=== PATIENT | female | born 1950 | race Caucasian/White ===

== ENCOUNTER → 2018-04-14 10:41 | Outpatient (CLI) | payer MEDICARE, SELFPAY ==
[2018-04-14 12:21] LABS: Anion Gap 6 (5-15); BUN 19 mg/dL (7-18); BUN/Creat Ratio 21.4 RATIO (10-20); Calcium,Total 9.4 mg/dL (8.5-10.1); Chloride 106 mmol/L (98-107); Cholesterol 191 mg/dL (200); Creatinine, Serum 0.89 mg/dL (0.55-1.02); EST Glomerular Filtration Rate 68 mL/min (>60); Est Glom Filt Rate - Afr Amer 82 mL/min (>60); Glucose 91 mg/dL (74-106); High Density Lipoprotein 62 mg/dL; Potassium 4.2 mmol/L (3.5-5.1); Sodium Level 140 mmol/L (136-145); Thyroid Stim Hormone (TSH) 1.32 uIU/mL (0.358-3.74); Triglycerides 146 mg/dL; Very Low Density Lipoprotein 29 mg/dL (5-40)
== END ==
PROVIDERS: Family Provider Family Medicine; PCP Family Medicine; Visit Provider Nurse Practitioner Adult Health
DX: Z13.220 Encounter for screening for lipoid disorders (principal); Z13.1 Encounter for screening for diabetes mellitus; Z13.29 Encounter for screening for other suspected endocrine disorder
CPT/HCPCS: 36415; 80048; 80061; 84443

== ENCOUNTER → 2018-09-22 11:06 | Outpatient (CLI) | payer MEDICARE, SELFPAY ==
[2018-09-22 12:20] LABS: Anion Gap 6 (5-15); BUN 21 mg/dL (7-18); BUN/Creat Ratio 18.8 RATIO (10-20); Calcium,Total 8.8 mg/dL (8.5-10.1); Chloride 107 mmol/L (98-107); Creatinine, Serum 1.12 mg/dL (0.55-1.02); EST Glomerular Filtration Rate 52 mL/min (>60); Est Glom Filt Rate - Afr Amer 63 mL/min (>60); Glucose 85 mg/dL (74-106); Potassium 4.2 mmol/L (3.5-5.1); Sodium Level 139 mmol/L (136-145)
== END ==
PROVIDERS: Family Provider Family Medicine; PCP Family Medicine; Referring Provider Family Medicine; Visit Provider Family Medicine
DX: R31.9 Hematuria, unspecified (principal)
CPT/HCPCS: 36415; 80048; 87086; 87088

== ENCOUNTER → 2018-09-25 16:09 | Outpatient (CLI) | payer MEDICARE, SELFPAY ==
--- NOTE | 2018-09-25 16:11 | US_ITS ---
HISTORY: HEMATURIA TECHNIQUE: Grey scale and color doppler sagittal and transverse images were obtained of the kidneys. COMPARISON: None FINDINGS: # of images incl. paperwork: [id number] RIGHT KIDNEY: 9.6 x 3.9 x 3.3 cm.. No hydronephrosis or shadowing stone. Markedly lobular contour of the right renal cortex. LEFT KIDNEY: 11.2 x 5.2 x 5.0 cm. No hydronephrosis or renal stone. No concerning left-sided lesions. 2.1 cm diameter cyst in the lower pole extending toward the renal pelvis.. URINARY BLADDER: Bilateral ureteral jets identified. No stones or filling defects in the urinary bladder. Prevoid volume 145 cc. Postvoid volume 1 cc. No wall thickening. US/Kidney and Bladder IMPRESSION: Markedly lobular contour of the right renal cortex. While this may represent anatomic variant or scarring with areas of sparing, renal protocol CT or MRI recommended to exclude mass which remains possible. Otherwise unremarkable study. at 0332 Reported and signed by: Wilfredo Small MD Electronically Signed: Wilfredo Small, at 3:31 EST Tel , Service support ,
--- OUTSIDE RECORDS SUMMARY | 2018-11-30 11:38 | XMS RPT_ITS ---
:1950 Author Organization OHIP Care Team Providers Name Role Phone JAYANT CAN Referring Unavailable Jayant Can Attending Unavailable Jayant Can Primary Care Unavailable Jayant Can Referring Unavailable Jayant Cna Attending Unavailable Jayant Can Referring Unavailable Juan José, Jayant Primary Care Unavailable Ynes Patel Attending Unavailable Ynes Patel Referring Unavailable Jayant Can Primary Care Unavailable PROBLEMS PROBLEMS DATE TYPE CONDITION / CODE ATTENDING STATUS SOURCE 09/22/2018 Unknown R31.9 - Jayant Can Active [place] Hematuria, Community unspecified / Hospital R31.9(ICD-10) Repository 02/27/2018 Active Encounter for NA Active [facility] screening Main [place] mammogram for Repository malignant neoplasm of breast / Z12.31(ICD-10) PROCEDURES PROCEDURES No Procedure Records FoundRESULTS RESULTS KIDNEY AND BLADDER Observed: 09/25/2018 Status: F Source: MALATHI 4:11 PM [facility] REPOSITORY [facility] Imaging Services [address] [place] [address] Kidney and Bladder MR#: [id number] Acct: [id number] Name: XIMENA OCHOA Rep #: [id number] : 1950 F 68 From: Wilfredo Small MD PCP: Jayant Can MD Status: REG CLI Study: Kidney and Bladder Date of Exam: 09/25/18 Exam# [id number] Ordering Dr: Jayant Can MD HISTORY: HEMATURIA TECHNIQUE: Grey scale and color doppler sagittal and transverse images were obtained of the kidneys. COMPARISON: None FINDINGS: # of images incl. paperwork: [id number] RIGHT KIDNEY: 9.6 x 3.9 x 3.3 cm.. No hydronephrosis or shadowing stone. Markedly lobular contour of the right renal cortex. LEFT KIDNEY: 11.2 x 5.2 x 5.0 cm. No hydronephrosis or renal stone. No concerning left-sided lesions. 2.1 cm diameter cyst in the lower pole extending toward the renal pelvis.. URINARY BLADDER: Bilateral ureteral jets identified. No stones or filling defects in the urinary bladder. Prevoid volume 145 cc. Postvoid volume 1 cc. No wall thickening. US/Kidney and Bladder IMPRESSION: Markedly lobular contour of the right renal cortex. While this may represent anatomic variant or scarring with areas of sparing, renal protocol CT or MRI recommended to exclude mass which remains possible. Otherwise unremarkable study. at 0332 Reported and signed by: Wilfredo Small MD Electronically Signed: Wilfredo Small, at 3:31 EST Tel , Service support , CC: Jayant Can MD Grinder Lap: Signed BASIC METABOLIC Collected: 09/22/2018 Status: F Source: MALATHI PROFILE (BMP) 11:07 AM [facility] TYPE CODE TESTS RESULT OUT OF RANGE REFERENCE UNITS LAB L501.0100 74-106 mg/dL Normal GLU 85 Result Comment: Please note revised GLUCOSE reference range effective 2017. LAB L501.1000 7-18 mg/dL High BUN 21 LAB L501.1100 0.55-1.02 mg/dL High CREAT,SERUM 1.12 Result Comment: The validity of the calculated GFR AND GFRAA in patients over 70 years has not been determined. Clinical correlation is essential. LAB L501.1110 >60 mL/min Low EST GFR 52 Result Comment: Non- GFR Calc LAB L501.1115 >60 mL/min Normal EST GFR - AA 63 Result Comment: GFR Calc LAB L501.1300 10-20 RATIO Normal BUN/CRE 18.8 LAB L501.2200 8.5-10.1 mg/dL CA Normal 8.8 LAB L501.5300 136-145 mmol/L NA Normal 139 LAB L501.5600 3.5-5.1 mmol/L K Normal 4.2 LAB L501.5900 98-107 mmol/L CL Normal 107 LAB L501.6100 21.0-32.0 mmol/L Normal CO2 26.0 LAB L501.6200 5-15 Normal GAP 6 Performed By: #### L500.2500 #### [facility] [address] [facility] [place], [address] Observed: 09/22/2018 Status: F Source: MALATHI CULTURE, URINE 9:30 AM [facility] Urine Culture ORGANISM 1: Mixed Gram Pos AND Gram Neg Org Piru Count 25,000-50,000 MIX CULTURE Mixed contaminants. Submit a new specimen if indicated. Performed By: #### M100.0650 #### [facility] [address] [facility] [place], [address] BASIC METABOLIC Collected: 04/14/2018 Status: F Source: MALATHI PROFILE (BMP) 10:51 AM [facility] Order Comment: Order Date: 03/25/18 Order Info: 0667-1 - BMP Order Info: 33783-7 - LIPID Order Info: 3016-3 - TSH TYPE CODE TESTS RESULT OUT OF RANGE REFERENCE UNITS LAB L501.0100 74-106 mg/dL Normal GLU 91 Result Comment: Please note revised GLUCOSE reference range effective 2017. LAB L501.1000 7-18 mg/dL High BUN 19 LAB L501.1100 0.55-1.02 mg/dL Normal CREAT,SERUM 0.89 Result Comment: The validity of the calculated GFR AND GFRAA in patients over 70 years has not been determined. Clinical correlation is essential. LAB L501.1110 >60 mL/min Normal EST GFR 68 Result Comment: Non- GFR Calc LAB L501.1115 >60 mL/min Normal EST GFR - AA 82 Result Comment: GFR Calc LAB L501.1300 10-20 RATIO High BUN/CRE 21.4 LAB L501.2200 8.5-10.1 mg/dL CA Normal 9.4 LAB L501.5300 136-145 mmol/L NA Normal 140 LAB L501.5600 3.5-5.1 mmol/L K Normal 4.2 LAB L501.5900 98-107 mmol/L CL Normal 106 LAB L501.6100 21.0-32.0 mmol/L Normal CO2 28.0 LAB L501.6200 5-15 Normal GAP 6 Performed By: #### L500.2500, L500.4100, L501.9520 #### [facility] [address] [place], [place], [address] LIPID PROFILE Collected: 04/14/2018 Status: F Source: MALATHI 10:51 AM [facility] Order Comment: Order Date: 03/25/18 Order Info: 0667-1 - BMP Order Info: 03091-5 - LIPID Order Info: 3016-3 - TSH TYPE CODE TESTS RESULT OUT OF RANGE REFERENCE UNITS LAB L501.4900 200 mg/dL Normal CHOL 191 Result Comment: <200 mg/dL Desirable 200-240 mg/dL Borderline >240 mg/dL High Risk LAB L501.5000 mg/dL Normal TRIG 146 Result Comment: The drugs N-Acetylcysteine and Metamizole may falsely depress this assay. Serum Triglycerides Reference Interval Normal <150 mg/dL Borderline high 150 - 199 mg/dL High 200 - 499 mg/dL Very High > or = 500 mg/dL LAB L501.6400 mg/dL Normal HDL 62 Result Comment: The drugs N-Acetylcysteine and Metamizole may falsely depress this assay. Reference Range HDL <40 mg/dL Low HDL Cholesterol HDL >or= 60 mg/dL High HDL Cholesterol LAB L501.6500 0-130 mg/dL Normal LDL 100 LAB L501.6600 5-40 mg/dL Normal VLDL 29 Performed By: #### L500.2500, L500.4100, L501.9520 #### [facility] [address] [place], [address] THYROID STIM HORMONE Collected: 04/14/2018 Status: F Source: MALATHI (TSH) 10:51 AM [facility] Order Comment: Order Date: 03/25/18 Order Info: 0667-1 - BMP Order Info: 24409-8 - LIPID Order Info: 3016-3 - TSH TYPE CODE TESTS RESULT OUT OF RANGE REFERENCE UNITS LAB L501.9520 0.358-3.74 uIU/mL Normal TSH 1.32 Performed By: #### L500.2500, L500.4100, L501.9520 #### [facility] [address] [place], [address] CNCO Observed: 02/27/2018 Status: COMPLETED Source: [place] 1:03 PM [facility] REPOSITORY HNO ID: [id number] Author: Mammography Coordinator Service: (none) Author Type: Physician Type: Letter Filed: 03/03/2018 11:31 PM Note Text: February 27, 2018 PID: [id number] Ximena AngelDeandre Ochoa [address] [place] [address] Dear Ms. Ochoa, We are pleased to inform you that the results of your recent breast imaging exam on 02/27/2018 are normal. Early detection of cancer is very important. We also understand recommendations regarding breast cancer screening are controversial. Please discuss with your primary care provider which strategy is best for you and whether a mammogram is right for you. Your imaging studies and report will be kept on file at [facility] as part of your permanent medical record and are available for your continuing care. Thank you for allowing us to help in meeting your health care needs. Sincerely, Dr. Starr Interpreting Radiologist [facility] (Normal over 40) [facility] SCREENING Observed: 02/27/2018 Status: F Source: [place] 10:40 AM [facility] [place] REPOSITORY * * *Final Report* * * DATE OF EXAM: Feb 27 2018 10:40AM [facility] 0581 - [facility] SCREENING / PROCEDURE REASON: screening * * * * Physician Interpretation * * * * RESULT: #[id number] - [facility] SCREENING BILATERAL DIGITAL SCREENING MAMMOGRAM WITH CAD: 02/27/2018 HISTORY: Screening /patient reports no breast symptoms /priors available for comparison. RESULT: TECHNIQUE: The study was acquired using full field digital technology and interpreted from soft copy. Current study was also evaluated with a Computer Aided Detection (CAD). Comparison is made to exams dated: 01/23/2017 mammogram, 01/18/2016 mammogram - [facility], and 01/05/2015 mammogram - [facility]. There are scattered fibroglandular elements in both breasts. No significant masses, calcifications, or other findings are seen in either breast. There has been no significant interval change. IMPRESSION: NEGATIVE There is no mammographic evidence of malignancy.A 1 year screening mammogram is recommended. Rafael louise/leo:02/27/2018 13:03:06 Farm Supervisor: Brielle GRIDER)(Dion), [facility] letter sent: Normal over 40 Mammogram BI-RADS: 1 Negative Grinder Lap: Leo Transcribe Date/Time: Feb 27 2018 10:27A Dictated by: RAFAEL STARR MD This examination was interpreted and the report reviewed and electronically signed by: RAFAEL STARR MD on Feb 27 2018 1:03PM EST [id number] Observed: 02/27/2018 Status: COMPLETED Source: [place] 10:27 AM [facility] [place] REPOSITORY HNO ID: [id number] Author: Yaquelin Khoury Service: (none) Author Type: (none) Type: Progress Notes Filed: 02/27/2018 10:47 AM Note Text: Radiology Service Progress Note PATIENT NAME: Ximena Ochoa DATE OF SERVICE: February 27, 2018 TIME: 10:27 AM PATIENT IDENTITY VERIFICATION COMPLETED USING TWO (2) METHODS: Patient confirmed name verbally and Date of . PATIENT GENDER DATA: Female. status: : No status: NO. PATIENT RELEVANT IMPLANT DATA REVIEWED: Not Applicable RADIOLOGY DEPARTMENT: [facility] shan scr mammogram PERIPHERAL IV DATA: Not applicable SIGNED BY: Yaquelin Khoury February 27, 2018 10:27 AM ALLERGIES ALLERGIES DATE TYPE / CODE NAME / CODE REACTION SEVERITY SOURCE Drug NO KNOWN [facility] Class/44373 ALLERGIES [place] 1003(SNOMED Repository CT) ENCOUNTERS ENCOUNTERS ADMIT/DISCHARGE ACCOUNT ADMITTING ENCOUNTER LOCATION SOURCE NUMBER CLASS 09/25/2018 [id number] [facility] ing:US Repository 09/22/2018 [id number] [facility] ing:PLAB Repository 04/14/2018 [id number] [facility] ing:MTLAB Repository 02/27/2018/02/28/20 [id number] Ambulatory [address] Repository PAYERS PAYERS ENCOUNTER GUARANTOR PAYER SUBSCRIBER SOURCE 09/25/2018 XIMENA R Primary XIMENA R Malathi [id number] SR Insurance:AETNA SHRIVERDOB: [address] Number: [id number] [address]Nme: [id number] Repository Date:[id number] BOX (HP) [id number] [place] [phone]: 09/25/2018 Secondary NOT GIVENUNK Malathi Insurance:SELF PAY [facility] Number: Effective Repository Date:2018-09-23 09/22/2018 XIMENA R Primary XIMENA R Malathi [id number] SR Insurance:AETNA SHRIVERDOB: [address] Number: [id number] [address]Svr: [id number] Repository Date:[id number] BOX (HP) [id number] [place] [phone]: 09/22/2018 Secondary NOT GIVENUNK [place] Insurance:SELF PAY [facility] Number: Effective Repository Date:2018-09-22 04/14/2018 XIMENA R Primary XIMENA R Malathi [id number] SR Insurance:AETNA SHRIVERDOB: [address] Number: [id number] [address]Fpc: [id number] Repository Date:[id number] BOX (HP) [id number] [place] [phone]: 04/14/2018 Secondary NOT GIVENUNK [place] Insurance:SELF PAY [facility] Number: Effective Repository Date:2018-04-14
== END ==
PROVIDERS: Family Provider Family Medicine; PCP Family Medicine; Referring Provider Family Medicine; Visit Provider Family Medicine
DX: R31.9 Hematuria, unspecified (principal)
CPT/HCPCS: 76770

== ENCOUNTER → 2018-10-06 09:36 | Outpatient (CLI) | payer MEDICARE, SELFPAY ==
--- NOTE | 2018-10-06 09:49 | MRI_ITS ---
STUDY: MRI ABDOMEN WITHOUT CONTRAST REASON FOR EXAM: Female, 68 years old. Abnormal ultrasound of the kidney. Renal ultrasound was performed for hematuria. Hematuria is no longer present. The renal ultrasound demonstrate a lobulated contour of the right renal cortex. TECHNIQUE: Multisequence multiplanar MRI of the abdomen was performed without IV contrast. COMPARISON: 7 kidneys 09/25/2018 FINDINGS: On the steam meter reader view one can appreciate degenerative disc disease at all visible levels of the thoracic and lumbar spine, associated with scoliosis. There is evidence of foraminal narrowing at multiple levels of the lumbar spine, incompletely characterized. Body wall soft tissues unremarkable. Inferior chest: Unremarkable. Hepatobiliary: Several small layering gallstones, nondilated noninflamed gallbladder, normal biliary tree and common bile duct. Tiny cyst at the tip of the liver with grossly simple cystic features, measuring 7.5 mm. Grossly simple cystlike focus in the dome of the right liver measuring 1.2 cm. Along the posterior margin of the liver, subcapsular, there is an oval focus measuring approximately 8.6 mm in diameter which exhibits T2 and T1 hypointensity, sharply circumscribed margins. Incompletely characterized. Pancreas: Normal. Spleen: Normal. Adrenal glands: Normal. Retroperitoneum: No mass or lymphadenopathy. Vasculature: Normal. Stomach and bowel: Evaluated portions exhibit no acute process. Kidneys: Each kidney exhibits mild macrolobulation of its cortical margin somewhat more pronounced in the right kidney. There are no defined underlying renal cortical medullary lesions. Simple appearing parapelvic cyst of the left kidney conforming to that seen on ultrasound, measuring approximately 2.4 x 1.4 cm, without underlying hydronephrosis. MRI/Abdomen without Contrast IMPRESSION: lobulations of the kidneys, normal variant, without MRI evidence of underlying suspicious lesion. Left renal parapelvic cyst without hydronephrosis. Cholelithiasis without cholecystitis or biliary ductal ectasia. There are 2 simple appearing cystlike foci of the liver. There is a 3rd lesion of the posterior margin of the right liver, at the junction of segment 6 and segment 7, subserosal position. Incompletely characterized. This focus does not conform to a simple cyst. It exhibits signal hypointensity on all sequences. Potentially partially calcified. An ultrasound of the liver should help to determine whether this represents a soft tissue lesion or a chronic calcification Electronically Signed: Alex Miles MD at 10:51 EST Tel , Service support ,
== END ==
PROVIDERS: Family Provider Family Medicine; PCP Family Medicine; Referring Provider Family Medicine; Visit Provider Family Medicine
DX: R93.421 Abnormal radiologic findings on diagnostic imaging of right kidney (principal)
CPT/HCPCS: 74181

== ENCOUNTER → 2018-10-08 09:33 | Outpatient (CLI) | payer MEDICARE, SELFPAY ==
--- NOTE | 2018-10-08 09:49 | US_ITS ---
STUDY: ABDOMINAL ULTRASOUND - RIGHT UPPER QUADRANT REASON FOR VISIT: Female, 68 years old. Gallstones, hepatic lesion TECHNIQUE: Ultrasound evaluation of the right upper quadrant was performed with real-time and static noel-scale imaging. TECHNICAL QUALITY: Adequate. COMPARISON: None. FINDINGS: Liver: The liver measures 14.6 cm. There is normal echogenicity of the liver. The bile ducts are within normal limits. There is hepatic color flow. The direction of portal flow is hepatopetal. There is a hyperechoic posterior right hepatic 1.3 x 1.2 cm nodule with shadowing likely related to a calcification or calcified nodule. This corresponds to the hypointense nodule in the liver on the MRI. There is a questionable complex hypoechoic nodular structure measuring 1.5 cm adjacent to the gallbladder. It is uncertain whether it is located within the hepatic parenchyma. Gallbladder: Normal distended gallbladder. The gallbladder wall measures 3 mm. There is a negative sonographic Lin's sign. There is no pericholecystic fluid. There are multiple gallstones. Common Bile Duct (C.B.D.): The common bile duct measures 5 mm. Pancreas: Normal size of the head, body and tail of the pancreas. There is normal echogenicity of the pancreas. There is no demonstrated pancreatic mass or cyst. Right Kidney: Normal size of the right kidney. The right kidney measures 9.7 x 3.8 x 4.0 cm. Normal renal cortex. The right cortex measures 1.5 cm. There is an upper pole 1.2 cm cyst. There is no right hydronephrosis. US/Liver IMPRESSION: Cholelithiasis. Echogenic right hepatic nodule with posterior shadowing probably representing a calcification BY nodule. Questionable nodular structure adjacent to the gallbladder, questionable etiology. Right renal cyst. Electronically Signed: Riki Keller DO at 23:55 EST Tel [phone], Service support ,
[2018-10-08 10:57] LABS: Anion Gap 5 (5-15); BUN 19 mg/dL (7-18); BUN/Creat Ratio 21.1 RATIO (10-20); Calcium,Total 9.1 mg/dL (8.5-10.1); Chloride 106 mmol/L (98-107); EST Glomerular Filtration Rate 67 mL/min (>60); Est Glom Filt Rate - Afr Amer 81 mL/min (>60); Glucose 68 mg/dL (74-106); Potassium 3.8 mmol/L (3.5-5.1); Sodium Level 141 mmol/L (136-145)
== END ==
PROVIDERS: Family Provider Family Medicine; PCP Family Medicine; Referring Provider Family Medicine; Visit Provider Family Medicine
DX: N28.9 Disorder of kidney and ureter, unspecified (principal); R93.429 Abnormal radiologic findings on diagnostic imaging of unspecified kidney
CPT/HCPCS: 36415; 76705; 80048

== ENCOUNTER 2018-11-04 05:22 | Day surgery (SDC) | payer MEDICARE, SELFPAY ==
[2018-10-10 15:07] VITALS: BMI 24.7
--- NOTE | 2018-10-28 11:01 | EKG12_ITS ---
Test Reason : PRE-OP Blood Pressure : / mmHG Vent. Rate : 068 BPM Atrial Rate : 068 BPM P-R Int : 154 ms QRS Dur : 076 ms QT Int : 422 ms P-R-T Axes : 052 019 024 degrees QTc Int : 448 ms Normal sinus rhythm Normal ECG Confirmed by GUILLERMO DUARTE, EDWARD ([id number]), news videotape editor CHRISTY MIRELES ([id number]) on 10/29/2018 10:03:00 AM Referred By: William Frazier Confirmed By:EDWARD LI MD
[2018-10-28 11:40] LABS: Hematocrit 47.7 % (37-47); Hemoglobin 15.6 g/dl (12.0-15.0); Mean Corp Hgb Conc 32.7 g/gl (32-36); Mean Corpuscular Hgb 29.7 pg (27.0-32.0); Mean Corpuscular Volume 90.9 fL (81-99); Mean Platelet Vol. 11.2 fl (6.2-12.0); Platelet Count 238 K/mm3 (150-450); RBC Distribution Width CV 13.2 % (11.6-14.6); RBC Distribution Width SD 43.3 fl (35.1-43.9); Red Blood Count 5.25 M/mm3 (4.2-5.4); White Blood Count 5.9 K/mm3 (4.4-11.0)
[2018-10-28 11:44] LABS: Scan Indicated on CBC? Y/N NO
--- NOTE | 2018-11-03 | GALL_PTH ---
PATIENT: KATLIN OCHOA LOC: [facility] [place] U#:[id number] AGE/SX: 68/F ROOM: RE11/04/[address]: Dr. William Frazier MD : [id number] BED: DIS: 11/04/2018 SPEC #: [id number] RECD: 11/04/18 12:31 STATUS: JERMAN ROSEMARIE #: [id number] BELEN: 11/03/18 00:[address]: William Frazier DEPT: SURGICAL PATHOLOGY RECD BY: Shahriar Bower ENTERED: 11/04/18 12:32 SP TYPE: WILLIAM MORRISON DR: Dr. Anand Can MD Tissues: Gallbladder, NOS Procedures: Surgery Specimen Level III HEADER OPERATION: Laparoscopic cholecystectomy with IOC PRE-OP DIAGNOSIS: Calculus of gallbladder with chronic cholecystitis without obstruction TISSUE SUBMITTED: Gallbladder MICROSCOPIC DIAGNOSIS Gallbladder, cholecystectomy: Chronic cholecystitis and cholelithiasis. SJ:[place] 11/05/18 MICROSCOPIC DESCRIPTION Slides are reviewed. GROSS DESCRIPTION Received is one container labeled with the patient's name and designated gallbladder. The specimen consists of a gallbladder measuring 8 cm in length and up to 4 cm in diameter. The external surface is pink-vásquez, smooth and glistening for the most part. Focally it is granular, hemorrhagic and contains cautery artifact. The gallbladder contains green-yellow mucoid bile and multiple irregular black stones measuring in aggregate 2 x 2 x 0.5 cm and 0.4 to 1.3 cm in greatest dimension. Some of the stones are embedded within the gallbladder wall. The mucosa is bile-stained and without any mass lesions. The gallbladder wall measures up to 0.2 cm in thickness. Service Architect sections from the gallbladder and the cystic duct are submitted in one cassette. / SJ:[place] 11/04/18 TC:3 CPT: 78804
[2018-11-04] VITALS (8 sets, daily range): BP systolic 122–157; BP diastolic 72–96; PULSE 63–88; RESP 14–18; TEMP 36.1–37.2; O2SAT 95–99; BMI 24.9
--- NOTE | 2018-11-04 07:07 | PCM.DC.GS ---
Discharge Diet: Light diet - advance as tolerated - if you have questions about your diet instructions, please talk to you doctor. Discharge Activity: May Not Drive - for 3-5 days or while taking narcotic pain medicine. May shower in (days): 1 Lifting Restrictions: 10 pounds Call your doctor if your incision/area has: Continuous Slow Oozing, Sudden Increased Bleeding, Increased Pain/ Swelling, Increased Redness, Foul Smelling Discharge Call your doctor if you observe: Fever of 101 or Higher Suture Line Care: Avoid Pulling/Pushing, Avoid Pinching/Bending Additional Dressing/Incision Instructions:: Change or remove dressing in 4 days. Leave steri-strips in place for 1 week. Allergies/Adverse Reactions: Allergies No Known Allergies Allergy (Verified 10/27/18 11:02) Medications to take at Discharge ascorbic acid (vitamin C) 500 mg tablet 500 mg PO DAILY 10/10/18 calcium carbonate-vitamin D3 600 mg (1,500 mg)-400 unit capsule 1 cap PO DAILY cap 10/10/18 lactobacillus combination no.9 4 billion cell capsule 4,000 mmu cells PO DAILY 10/10/18 multivitamin tablet 1 tab PO DAILY 10/10/18 omega-3 fatty acids 1,000 mg capsule 1,000 mg PO DAILY 10/10/18 pseudoephedrine ER 120 mg tablet,extended release 120 mg PO Q12H PRN 10/10/18 Calcium Carbonate [Tums] 200 mg PO PRN PRN 10/27/18 Cholecalciferol (Vitamin D3) [Vitamin D3] 5,000 unit PO DAILY 10/27/18 Ibuprofen 200 mg PO PRN PRN 10/27/18 Hydrocodone Bitart/Apap 5-325 [[place] 5MG-325MG] 1 tablet PO Q6H PRN PRN 3 Days #8 tablet 11/04/18 The following prescriptions were given: Hydrocodone Bitart/Apap 5-325 [[place] 5MG-325MG] 1 tablet PO Q6H PRN PRN 3 Days #8 tablet PRN Reason: Pain Primary Care Physician: Anand Can MD [Primary Care Provider] - Test Results: Test results from this visit will be discussed in further detail at your follow-up appointment, if applicable. Please Follow Up With: William Frazier MD - [phone] When: Call to make an appointment to be seen in about 10 days.
[2018-11-04] MEDS: Cefazolin 2 GM in 0.9% Normal Saline 100 ML IV (07:11)
--- NOTE | 2018-11-04 07:15 | RAD_ITS ---
STUDY: INTRAOPERATIVE CHOLANGIOGRAM. REASON FOR EXAM: Female, 68 years old. Laparoscopic cholecystectomy. FLUOROSCOPY TIME (if supplied): (0:18) minutes/seconds. A cine loop was obtained. TECHNIQUE: Intraoperative cholangiogram was performed by the surgeon. A cine loop was submitted. COMPARISON: None. FINDINGS: And intraoperative granulomas performed by the surgeon. Imaging was submitted. The common bile duct is not dilated. No intraluminal filling defect is seen. There is free flow of contrast into the duodenum. RAD/Cholangiogram/ O R,Initial IMPRESSION: Unremarkable intraoperative cholangiogram. Electronically Signed: Derian Dias, at 13:35 EST , Service support ,
--- NOTE | 2018-11-04 08:14 | PCM.OPRPT ---
Problem List (1) Cholelithiasis with chronic cholecystitis Status: Chronic Qualifiers: Cholelithiasis location: gallbladder Biliary obstruction: without biliary obstruction Qualified Code(s): K80.10 - Calculus of gallbladder with chronic cholecystitis without obstruction Report of Operation Date of Procedure: 11/04/18 Pre-Operative Diagnosis: Chronic cholecystitis cholelithiasis Post-Operative Diagnosis: Same Surgery/Procedure Performed:: Laparoscopic cholecystectomy with cholangiograms Description of Surgical Findings:: 68-year-old female was taken off room. She was placed on the table. She underwent general endotracheal intubation anesthesia. Ancef 2 g given intravenously preoperatively. The abdomen was sterilely prepped and draped. 0.5% Marcaine was used as a local anesthetic. The procedure total 30 cc was used. A vertical infraumbilical midline incision was created. Holding sutures of 0 Vicryl placed. Veress needle inserted. Saline drop test performed. The abdomen was insufflated with CO2 to a pressure of 10 mmHg pressure. To me trocar inserted. 10 lap scope inserted. The abdomen is rapidly inspected no evidence of any superficial abnormalities but there were adhesions of omentum to the gallbladder. 5 mm trochars were placed in the epigastric mid abdomen right upper quadrant. The gallbladder was elevated and blunt dissection was used to dissect free the omental adhesions. Then the infundibular area was nicely dissected free. The cystic artery and duct clearly identified as the critical view was achieved. The cystic artery was clipped proximally distally prior to transecting it. Hemo-lock clip was placed on the cystic duct incision made in the cystic duct and through a 14-gauge Angiocath clench Dash catheter was inserted. Fluoroscopically controlled cholangiograms were obtained demonstrating normal ductal anatomy and flow into the small bowel. The clench Dash catheter was removed to hemo-lock clips were placed on the cystic duct stump prior to transecting it. The gallbladder was dissected free from the liver bed. The gallbladder almost wanted to just skate itself out of the liver bed. Hemostasis was obtained with electrocautery. The gallbladder was placed in a retrieval bag. The right upper quadrant was irrigated and aspirated free of excess fluid. There has been no bile or stone spillage. A piece of fibrillar was placed in the liver bed to ensure hemostasis. The gallbladder was exited the umbilicus. The remaining trochars were removed under visualization. The abdomen was allowed to deflate of the CO2. The fascia at the umbilicus approximately up to 0 Vicryl [id number] suture. Skin edges approximated up to 4 Monocryl subdermal stitches. Steri-Strips and Telfa and OpSite dressings were applied. Sponge and instrument and needle counts were reported the surgeon to be correct. Specimen gallbladder. Drains none. Blood loss minimal. William Frazier M.D., F.A.C.S. Type of Anesthesia:: General Anesthesiologist: Carie Le
[2018-11-04] MEDS: Bupivacaine Mpf 0.5% 30 ML VIAL (08:16)
== END 2018-11-04 13:07 | disposition home or self-care (01) ==
LOC: SDC 05:23 → AC 05:23
PROVIDERS: Family Provider Family Medicine; PCP Family Medicine; Referring Provider Surgery; Visit Provider Surgery
PROC: (CPT 47610; principal; 2018-11-04 06:55)
DX: K80.10 Calculus of gallbladder with chronic cholecystitis without obstruction (principal); K76.89 Other specified diseases of liver; M19.90 Unspecified osteoarthritis, unspecified site; Z78.0 Asymptomatic menopausal state; Z79.899 Other long term (current) drug therapy; Z87.891 Personal history of nicotine dependence
CPT/HCPCS: 00790; 47563; 36415; 74300; 76000; 85027; 88304; 93005; J7120; A4216; J2405

== ENCOUNTER → 2019-04-23 12:03 | Outpatient (CLI) | payer MEDICARE, SELFPAY ==
[2018-11-04 05:42] VITALS: BMI 24.9
--- NOTE | 2019-04-23 12:06 | BI_ITS ---
MAMMOGRAPHY - BILATERAL SCREENING REASON FOR EXAM: Female, 69 years old. Routine annual screening examination. PERTINENT HISTORY: Non-contributory. TECHNIQUE: Digital bilateral breast ryan (3D mammographic acquisition) in the CC and MLO projections. 2-D mediolateral oblique (MLO) and craniocaudad (CC) views of both breasts were obtained. CAD: Full Field Digital Mammography with Computer Added Detection was performed. COMPARISON: Comparison is made with prior outside examination dated February 27, 2018. FINDINGS: Breast Composition: There are scattered areas of fibroglandular density. There are no dominant masses or suspicious calcifications. No other significant abnormalities are identified. There has been no significant change since the prior study. BI/SCREEN MAMM (CAD) W/RYAN BILAT IMPRESSION: Stable bilateral screening mammogram. Yearly follow-up mammogram recommended. (A) ASSESSMENT CATEGORY: BIRADS Category 1: Negative. A letter regarding these results will be sent to the patient by the facility within 30 days. Approximately 10% of breast cancers are not detected by mammography. A normal mammogram should not delay biopsy of a clinically suspicious abnormality. [id number] Electronically Signed: Derian Dias, at 13:06 EDT , Service support ,
== END ==
PROVIDERS: Family Provider Family Medicine; PCP Family Medicine; Referring Provider Family Medicine; Visit Provider Family Medicine
DX: Z12.31 Encounter for screening mammogram for malignant neoplasm of breast (principal)
CPT/HCPCS: 77063; 77067

== ENCOUNTER → 2020-01-08 08:43 | Outpatient (CLI) | payer MEDICARE, SELFPAY ==
[2018-11-04 05:42] VITALS: BMI 24.9
[2020-01-08 10:58] LABS: Cholesterol 164 mg/dL (200); Creatinine, Serum 0.91 mg/dL (0.55-1.02); EST Glomerular Filtration Rate 66 mL/min (>60); Est Glom Filt Rate - Afr Amer 79 mL/min (>60); High Density Lipoprotein 57 mg/dL; Thyroid Stim Hormone (TSH) 0.85 uIU/mL (0.358-3.74); Triglycerides 74 mg/dL; Very Low Density Lipoprotein 15 mg/dL (5-40)
== END ==
PROVIDERS: PCP Family Medicine; Referring Provider Family Medicine; Visit Provider Family Medicine
DX: Z00.00 Encounter for general adult medical examination without abnormal findings (principal)
CPT/HCPCS: 36415; 80061; 82565; 84443

== ENCOUNTER 2020-01-26 07:16 | Day surgery (SDC) | payer MEDICARE, SELFPAY ==
[2018-11-04 05:42] VITALS: BMI 24.9
[2020-01-26] VITALS (7 sets, daily range): BP systolic 105–141; BP diastolic 60–87; PULSE 62–74; RESP 16–18; TEMP 36.2–37.3; O2SAT 98–99; BMI 25.2
[2020-01-26] MEDS: Lactated Ringers 1,000 ML 100 ML IV (08:00)
--- NOTE | 2020-01-26 08:26 | H&P.OPEN ---
History of Present Illness Date of Admission: 01/26/20 The patient is a 69 year old F here for surveillance colonoscopy. The patient reports that she had a colonoscopy 5 years ago and 3 polyps were identified and she was recommended to have another one in 5 years. She has no abdominal pain or blood in her stool. No known history of familial colon cancer Past Medical/Surgical History - Planned Operation Planned Operative Procedure/s: COLONOSCOPY Date of Operative Procedure: 01/26/20 Permit Signed: Yes S.O.S: No Is This Patient Having a Total Joint: No - Previous Hospitalizations/Surgeries HX Hospitalizations: No HX of Surgeries: TONSILLECTOMY CHILD. LAPAROSCOPIC INFERTILITY SURGERY. TUBAL LIGATION 1986. WISDOM TEETH ADULT. LAP BRADEN 10/2018 Any Problems With Anesthesia: No You/Your Family Experience Fever (Hyperthermia) With Anes: No Cholinesterase deficiency: No - Cardiovascular Hx Chest Pain within Last 2 months: No Hx of Irregular Heartbeat and/or Afib: No Hx Heart Attack: No Hx Congestive Heart Failure: No Hx Rheumatic Fever: No Hx Hypertension: No Hx Internal Defibrillator: No Hx Pacemaker: No Hx Cardiac Catheterization: No Hx Cardiac Surgery/Stents/Etc.: No Hx Stress Test: No HX Edema: No Hx Pain in Legs when Walking/Leg Cramps: No - Respiratory Chronic Cough: No HX of Shortness of Breath: No Hoarseness: No Hx Chronic Obstructive Pulmonary Disease (COPD): No Hx Asthma: No Hx Emphysema: No Hx Sleep Apnea: No CPAP: No Hx Oxygen Use at Home: No Hx Respiratory Tract Infection/Cold (presently): No Do You Snore Loudly (louder than talking or can be heard): Yes Do You Often Feel Tired/ Fatigued/ Sleepy Dring Daytime?: No Has Anyone Observed You Stop Breathing During Sleep?: No Result (for STOP score): Negative Hx Smoking: Yes - QUIT 2011 Smoking Status: Former smoker - Gastrointestinal Hx Gastroesophageal Reflux: No - OCCAS HEARTBURN/OTC TUMS Hx Gastrointestinal Disorders: No Hx Gastrointestinal Bleed: No Hx Ulcer: No Hx Hiatal Hernia: No Difficulty Chewing/Swallowing: No Recent Onset of Swallowing Problems: No Special diet followed at home: No Hx Unplanned Weight Loss of 20#: No HX Unplanned Weight Gain of 20#: No - Neurological Hx Seizures: No HX Syncope/Blackout Spells/Unconsciousness: No Hx CVA/Stroke: No Hx Transient Ischemic Attacks (TIA): No Hx Multiple Sclerosis: No Hx Parkinson's Disease: No Hx Head/Neck Injury: No Hx Headaches: No Hx Back Injury/Pain: Yes - OCCAS LOW BACK PAIN Recent Onset of Speech Difficulty: No Restless Legs: No Does patient have nerve stimulator: No - Blood Disorder Hx Leukemia: No Bleeding Tendencies: No Hx Deep Vein Thrombosis: No Hx High Cholesterol: No Blood Transmitted Disease: No Hx Hepatitis: No - SPOT ON LIVER MRI Hx Cirrhosis: No Hx Anemia: No Hx Blood Disorders: No - Reproduction : No Is Patient Lactating: No Hx Hysterectomy: No Hx Tubal Ligation: Yes Are You Post Menopause: Yes - Genitourinary Hx Renal Disease: No - DENIES PROBLEMS VOIDING POST OP - Musculoskeletal Hx Arthritis: No Hx Rheumatoid Arthritis: No Hx Gout: No Recent Onset of an Orthopedic Problem: No - Endocrine Hx Diabetes: No Thyroid Disease: No Hx Steroid Therapy: No - Psycho/Social Hx Substance Use: No Hx Alcohol Use: Yes - SOCIAL/ 1 DRINK/WEEK Hx Anxiety: No Hx Depression: No Mental Illness: No Hx Dementia: No - Miscellaneous Hx Cancer: No Recent Exposure to Contagious Disease: No Active MRSA: No Hx of C-Diff: No Any Loose Teeth: No Allergies No Known Allergies Allergy (Verified 01/26/20 07:51) - Discharge Is Pt Admitted From a Senior Care, or a Half-Way: No Who Could Help: DANTE After D/C, Where Do you Plan to Go: Return Home - From the PAT History Number of Risk Factors: 1 - Physical Exam Vitals/I&O's: Vital Signs Temp Pulse Resp BP Pulse Ox 99.2 F H 62 18 140/87 H 99 01/26/20 07:54 01/26/20 07:54 01/26/20 07:54 01/26/20 07:54 01/26/20 07:54 Oxygen Delivery Method Room Air Weight: 147 lb 0.773 oz Body Mass Index (BMI) 25.2 General: Alert, Oriented x3 Neck: No JVD Lungs: Normal air movement Cardiovascular: Regular rate, Regular Rhythm Abdomen: Soft, Non Tender, Non-Distended Microbiology Past 72 Hours 01/25/20 11:42 Mucosa - Nasopharyngeal Coronavirus COVID-19 PCR - Final Laboratory Results 01/25/20 11:42: COVID-19 (NESTOR) Pending Current Medications Lactated Ringer's () 1,000 mls @ 100 mls/hr IV .Q10H TSERING Last Admin: 01/26/20 08:00 Dose: 100 mls/hr Documented by: Assessment/Plan All Active Problems (Last Reviewed 11/17/18 @ 13:11 by Danay Gonzalez) Liver nodule (Acute) Hx of wisdom tooth extraction (Acute) Hx of colonoscopy (Acute) Hx of tubal ligation (Acute) Hx of tonsillectomy (Acute) Arthritis (Acute) 69-year-old female for surveillance colonoscopy with history of polyps I explained endoscopy in detail to the patient. I explained the risks including but not limited to stroke or heart attack with anesthesia, perforation of the GI tract, bleeding, infection. I explained that any of these could necessitate further emergency surgery. The patient understands and all questions were answered sufficiently. The patient wishes to proceed with procedure. We discussed the current risks associated with COVID-19. While it is understood that there is a community spread of COVID-19, the risk of dayo COVID-19 while at [facility] ([facility]) is very low; however, the risk cannot be completely mitigated because of the community spread of the disease. We discussed in detail the risk of exposure to and/or potential harm posed by the COVID-19 virus with having a surgery/procedure at this time versus the risk of delaying the surgery/procedure. It is not possible to know either the risk of delaying the surgery or procedure or chance of getting an infection with perfect accuracy, but a joint decision was made to proceed at this time with the scheduled surgery/procedure as indicated on the consent form. Patient was notified that we will need to comply with any screening or testing [facility] wishes to perform or that surgery may be delayed for any positive results. Ronnell Toure MD Pager: [facility] [address] [place] [address], [address] [place] [address] Office: Surgery Risks - Colonoscopy Risks Include but are not Limited To: Risks include but are not limited to: Bleeding, perforation requiring further surgery, inability to complete colonoscopy requiring barium enema.
--- NOTE | 2020-01-26 08:30 | COLBX_PTH ---
PATIENT: KATLIN OCHOA LOC: EN U#:[id number] AGE/SX: 69/F ROOM: RE01/26/[address]: Dr. Ronnell Toure MD : 1950 BED: DIS: 01/26/2020 SPEC #: [id number] RECD: 01/26/20 12:40 STATUS: JERMAN ROSEMARIE #: [id number] BELEN: 01/26/20 08:[address]: Ronnell Toure DEPT: SURGICAL PATHOLOGY RECD BY: Kike Medley ENTERED: 01/27/20 09:16 SP TYPE: COLON BX OTHR DR: Dr. Annad Can MD Tissues: Rectum, NOS Procedures: Surgery Specimen Level IV HEADER OPERATION: Colonoscopy - open access (MAC) PRE-OP DIAGNOSIS: Screening, history polyps TISSUE SUBMITTED: Rectum polyp MICROSCOPIC DIAGNOSIS Rectal polyp, biopsy: Hyperplastic polyp. AM:dalton 01/28/20 MICROSCOPIC DESCRIPTION Slides are reviewed. GROSS DESCRIPTION Received in fixative is one container labeled with the patient's name and designated rectal polyp. The specimen consists of one irregular fragment of light vásquez soft tissue that measures 0.5 x 0.3 x 0.1 cm. The specimen is totally submitted in one cassette. / AM:dalton 01/27/20 TC:5 CPT: 56146
--- NOTE | 2020-01-26 09:07 | OP.CCLET_ITS ---
01/26/2020 Anand Can [address] [place] [address] Re : Colonoscopy procedure for Ximena Farrell Dear Dr. Can This procedure was performed on Sunday, January 26, 2020. My impressions and recommendations are as follows: Impressions : - One polyp in the rectum, removed with a hot snare. Resected and retrieved. - The entire examined colon is normal on direct and retroflexion views. Recommendations : - Await pathology results. - Discharge patient to home. - Resume previous diet. - Continue present medications. - Repeat colonoscopy for surveillance based on pathology results. My findings are described in the full procedure note, which is enclosed. If I can be of further assistance, please feel free to contact me at Doctor phone number(s): , Work: . Sincerely, Ronnell Toure MD 01/26/2020 9:06:21 AM This report has been signed electronically.
--- NOTE | 2020-01-26 09:07 | OP.COLON_ITS ---
Patient Name: Ximena Farrell Procedure Date: 01/26/2020 8:36 AM Date of : 1950 Age: 69 Procedure: Colonoscopy Indications: Surveillance: Personal history of adenomatous polyps on last colonoscopy 5 years ago Providers: Ronnell Toure MD Referring MD: Anand Can Medicines: Monitored Anesthesia Care Patient Profile: This is a 69 year old female. Refer to note in patient chart for documentation of history and physical. Last Colonoscopy: 5 years ago. Complications: No immediate complications. Estimated blood loss: Minimal. Procedure: Pre-Anesthesia Assessment: - Prior to the procedure, a History and Physical was performed, and patient medications and allergies were reviewed. The patient's tolerance of previous anesthesia was also reviewed. The risks and benefits of the procedure and the sedation options and risks were discussed with the patient. All questions were answered, and informed consent was obtained. Prior Anticoagulants: The patient has taken no previous anticoagulant or antiplatelet agents. After reviewing the risks and benefits, the patient was deemed in satisfactory condition to undergo the procedure. After I obtained informed consent, the scope was passed under direct vision. Throughout the procedure, the patient's blood pressure, pulse, and oxygen saturations were monitored continuously. The pediatric colonoscope was introduced through the anus and advanced to the cecum, identified by appendiceal orifice and ileocecal valve. The colonoscopy was performed without difficulty. The patient tolerated the procedure well. The quality of the bowel preparation was good. Scope In: 8:44:07 AM Scope Withdrawal Time 0 hours 6 minutes 44 seconds Scope Out: 9:02:24 AM Total Procedure Duration Time 0 hours 18 minutes 17 seconds Findings: A polyp was found in the rectum. The polyp was removed with a hot snare. Resection and retrieval were complete. Verification of patient identification for the specimen was done. The entire examined colon appeared normal on direct and retroflexion views. Impression: - One polyp in the rectum, removed with a hot snare. Resected and retrieved. - The entire examined colon is normal on direct and retroflexion views. Recommendation: - Await pathology results. - Discharge patient to home. - Resume previous diet. - Continue present medications. - Repeat colonoscopy for surveillance based on pathology results. Procedure Code(s): --- Professional --- 42060, Colonoscopy, flexible; with removal of tumor(s), polyp(s), or other lesion(s) by snare technique Diagnosis Code(s): --- Professional --- Z86.010, Personal history of colonic polyps K62.1, Rectal polyp CPT copyright 2017 [employer]. All rights reserved. The codes documented in this report are preliminary and upon consumer affairs specialist review may be revised to meet current compliance requirements. Ronnell Toure MD 01/26/2020 9:06:21 AM This report has been signed electronically. Number of Addenda: 0 Note Initiated On: 01/26/2020 8:36 AM
== END 2020-01-26 09:43 | disposition home or self-care (01) ==
LOC: EN 07:17 → AC 07:17
PROVIDERS: PCP Family Medicine; Referring Provider Family Medicine; Visit Provider Surgery
PROC: 0DJD8ZZ Inspection of Lower Intestinal Tract, Via Natural or Artificial Opening Endoscopic (ICD-10-PCS; CPT 45378; principal; 2020-01-26 08:25)
DX: Z12.11 Encounter for screening for malignant neoplasm of colon (principal); K62.1 Rectal polyp; K76.89 Other specified diseases of liver; M19.90 Unspecified osteoarthritis, unspecified site; Z86.010 Personal history of colon polyps; Z78.0 Asymptomatic menopausal state; Z87.891 Personal history of nicotine dependence; Z79.899 Other long term (current) drug therapy; Z11.59 Encounter for screening for other viral diseases
CPT/HCPCS: 45385; 87635; 88305; G2023; J7120; U0002; U0004

== ENCOUNTER → 2020-02-10 | Outpatient (CLI) | payer MEDICARE, SELFPAY ==
[2018-11-04 05:42] VITALS: BMI 24.9
[2020-01-26 07:54] VITALS: BMI 25.2
--- NOTE | 2020-02-10 09:52 | BD_ITS ---
STUDY: DUAL ENERGY X-RAY ABSORPTIOMETRY / DXA REASON FOR EXAM: Female, 69 years old. 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 COMPARISON: Comparison is made with prior study dated February 13, 2017. FINDINGS: Lumbar Spine (L1-L4): g/cm2 (1.234) / T-score (0.3) / Z-score (1.9) Findings are suggestive of normal bone density with a low fracture risk. Left Femur Total: g/cm2 (0.802) / T-score (-1.6) / Z-score (-0.3) Left Femoral Neck: g/cm2 (0.799) / T-score (-1.7) / Z-score (-0.1) Right Femur Total: g/cm2 (0.846) / T-score (-1.3) / Z-score (0.1) Right Femoral Neck: g/cm2 (0.831) / T-score (-1.5) / Z-score (0.1) The T-Scores on the most recent prior examination were: Lumbar Spine (L1-L4): There has been improvement of bone density since the previous examination. Left Femur Total: which represents a worsening of 3%. Right Femur Total: which represents a worsening of 4.5%. BD/Dexa Bone Density Study IMPRESSION: The patient is considered osteopenic as outlined below according to World [employer] Organization (WHO) criteria with a moderate fracture risk. There has been worsening of bone density since the previous examination. Reference Information: The T-score is the number of standard deviations above or below the standard which is normal for young adults at their peak bone mineral density. The World Health Organization (WHO) interprets the T-scores as follows: Above -1 Normal bone density Between -1 and -2.5 Osteopenia Equal to / or below -2.5 Osteoporosis As a practical clinical guideline, osteopenia may be graded as follows: Mild -1 through -1.5 Moderate -1.6 through -2.0 Severe -2.1 through -2.4 The Z-score is the number of standard deviations above or below age-matched controls. A Z-score of less than -1.5 would be considered abnormal. References: 1. NIH Osteoporosis and Related Bone Diseases http://www.osteo.org 2. International Society for Clinical Densitometry http://www.iscd.org 3. National Osteoporosis Foundation http://www.nof.org Electronically Signed: Derian Dias, at 15:50 EDT , Service support ,
== END | disposition home or self-care (01) ==
LOC: OPBD 09:45
PROVIDERS: PCP Family Medicine; Referring Provider Family Medicine; Visit Provider Family Medicine
DX: M85.80 Other specified disorders of bone density and structure, unspecified site (principal); Z78.0 Asymptomatic menopausal state; Z87.891 Personal history of nicotine dependence
CPT/HCPCS: 77080

== ENCOUNTER → 2020-06-17 | Outpatient (CLI) | payer MEDICARE, SELFPAY ==
[2020-01-26 07:54] VITALS: BMI 25.2
== END | disposition home or self-care (01) ==
LOC: LABSPEC 15:54
PROVIDERS: PCP Family Medicine; Referring Provider Family Medicine; Visit Provider Family Medicine
DX: N39.0 Urinary tract infection, site not specified (principal)
CPT/HCPCS: 87086; 87088

== ENCOUNTER → 2021-02-28 09:16 | Outpatient (CLI) | payer MEDICARE, SELFPAY ==
[2020-01-26 07:54] VITALS: BMI 25.2
[2021-02-28 11:08] LABS: ALB/GLOB Ratio 1.2 RATIO (0.9-2.4); AST(SGOT) 22 U/L (15-37); Alanine Aminotransfer ALT/SGPT 28 U/L (13-56); Albumin, Serum 3.8 g/dL (3.2-5.0); Alkaline Phosphatase 80 U/L (45-117); Anion Gap 7 (5-15); BUN 18 mg/dL (7-18); BUN/Creat Ratio 21.5 RATIO (10-20); Calcium,Total 8.7 mg/dL (8.5-10.1); Chloride 108 mmol/L (98-107); Cholesterol 177 mg/dL (200); Creatinine, Serum 0.84 mg/dL (0.55-1.02); EST Glomerular Filtration Rate 72 mL/min (>60); Est Glom Filt Rate - Afr Amer 87 mL/min (>60); Globulin 3.2 g/dL (2.2-4.2); Glucose 83 mg/dL (74-106); High Density Lipoprotein 63 mg/dL; Potassium 3.9 mmol/L (3.5-5.1); Sodium Level 140 mmol/L (136-145); Thyroid Stim Hormone (TSH) 1.09 uIU/mL (0.358-3.74); Triglycerides 113 mg/dL; Very Low Density Lipoprotein 23 mg/dL (5-40)
== END ==
PROVIDERS: PCP Family Medicine; Referring Provider Family Medicine; Visit Provider Family Medicine
DX: M19.90 Unspecified osteoarthritis, unspecified site (principal)
CPT/HCPCS: 36415; 80053; 80061; 84443

== ENCOUNTER → 2021-04-17 12:44 | Outpatient (CLI) | payer MEDICARE, SELFPAY ==
[2020-01-26 07:54] VITALS: BMI 25.2
--- NOTE | 2021-04-17 12:46 | BI_ITS ---
MAMMOGRAPHY - BILATERAL SCREENING REASON FOR EXAM: Female, 71 years old. Routine annual screening examination. PERTINENT HISTORY: Non-contributory. TECHNIQUE: Digital bilateral breast ryan (3D mammographic acquisition) in the CC and MLO projections. 2-D mediolateral oblique (MLO) and craniocaudad (CC) views of both breasts were obtained. CAD: Full Field Digital Mammography with Computer Added Detection was performed. COMPARISON: Comparison is made with prior examination dated 04/23/2019. FINDINGS: Breast Composition: There are scattered areas of fibroglandular density. There are no dominant masses or suspicious calcifications. No other significant abnormalities are identified. There has been no significant change since the prior study. BI/SCRN MAMM (CAD)W/RYAN BILAT IMPRESSION: Stable bilateral screening mammogram. Yearly follow-up mammogram recommended. (A) ASSESSMENT CATEGORY: BIRADS Category 1: Negative. A letter regarding these results will be sent to the patient by the facility within 30 days. Approximately 10% of breast cancers are not detected by mammography. A normal mammogram should not delay biopsy of a clinically suspicious abnormality. [id number] Electronically Signed: Derian Dias MD at 13:36 EDT , Service support ,
== END ==
PROVIDERS: PCP Family Medicine; Referring Provider Registered Nurse; Visit Provider Registered Nurse
DX: Z12.31 Encounter for screening mammogram for malignant neoplasm of breast (principal)
CPT/HCPCS: 77063; 77067

== ENCOUNTER → 2021-06-10 | Outpatient (CLI) | payer MEDICARE, SELFPAY | END | disposition home or self-care (01) | LOC: LABSPEC 06-12 08:09 | PROVIDERS: PCP Family Medicine; Referring Provider Physician Assistant Surgical; Visit Provider Physician Assistant Surgical | DX: U07.1 COVID-19 (principal) | CPT/HCPCS: 87635; U0005; U0003 ==

== ENCOUNTER 2021-06-12 17:06 | Outpatient (CLI) | payer MEDICARE, SELFPAY ==
[2021-06-12] MEDS: 0.9% Saline Lock 10 ML Syringe IV (17:11)
[2021-06-12 17:14] VITALS: BP 152/81; PULSE 80; RESP 16; TEMP 37.2; O2SAT 97; BMI 24.7
[2021-06-12 18:16] VITALS: BP 163/93; PULSE 65; RESP 16; TEMP 36.7; O2SAT 97
[2021-06-12 19:14] VITALS: BP 160/83; PULSE 65; RESP 16; TEMP 36.6; O2SAT 99
== END 2021-06-12 19:16 | disposition home or self-care (01) ==
LOC: MS2OUT 17:07 → MS3 17:08
PROVIDERS: PCP Family Medicine; Referring Provider Nurse Practitioner Adult Health; Visit Provider Nurse Practitioner Adult Health
DX: Z23 Encounter for immunization (principal); U07.1 COVID-19
CPT/HCPCS: J7050; M0243; A4216; Q0244

== ENCOUNTER → 2021-08-17 | Outpatient (CLI) | payer MEDICARE, SELFPAY | END | disposition home or self-care (01) | PROVIDERS: PCP Family Medicine; Referring Provider Nurse Practitioner Family; Visit Provider Nurse Practitioner Family | DX: J06.9 Acute upper respiratory infection, unspecified (principal) | CPT/HCPCS: 87633; 87635; U0005; U0003 ==

== ENCOUNTER 2021-12-14 13:47 | Outpatient (CLI) | payer MEDICARE, SELFPAY | END 2021-12-14 23:59 | disposition home or self-care (01) | LOC: LABSPEC 13:48 | PROVIDERS: PCP Family Medicine; Referring Provider Family Medicine; Visit Provider Nurse Practitioner Family | DX: R30.0 Dysuria (principal) | CPT/HCPCS: 87077; 87086; 87088; 87186 ==

== ENCOUNTER → 2022-03-21 | Outpatient (CLI) | payer MEDICARE, SELFPAY ==
[2022-03-21 16:07] LABS: ALB/GLOB Ratio 1.5 RATIO (0.9-2.4); AST(SGOT) 31 U/L (15-37); Alanine Aminotransfer ALT/SGPT 35 U/L (13-56); Alkaline Phosphatase 66 U/L (45-117); Anion Gap 7 (5-15); BUN 18 mg/dL (7-18); BUN/Creat Ratio 22.7 RATIO (10-20); Calcium,Total 9.4 mg/dL (8.5-10.1); Chloride 109 mmol/L (98-107); Cholesterol 169 mg/dL (200); Creatinine, Serum 0.79 mg/dL (0.55-1.02); EST Glomerular Filtration Rate 76 mL/min (>60); Est Glom Filt Rate - Afr Amer 92 mL/min (>60); Globulin 2.7 g/dL (2.2-4.2); Glucose 90 mg/dL (74-106); High Density Lipoprotein 56 mg/dL; Potassium 4.2 mmol/L (3.5-5.1); Protein, Total 6.7 g/dL (6.4-8.2); Sodium Level 139 mmol/L (136-145); Triglycerides 113 mg/dL; Very Low Density Lipoprotein 23 mg/dL (5-40)
[2022-03-21 19:54] LABS: Vitamin D,25 Hydroxy 96.3 ng/mL
== END | disposition home or self-care (01) ==
LOC: MFPLAB 11:28
PROVIDERS: PCP Family Medicine; Referring Provider Family Medicine; Visit Provider Family Medicine
DX: Z00.00 Encounter for general adult medical examination without abnormal findings (principal); M85.80 Other specified disorders of bone density and structure, unspecified site
CPT/HCPCS: 36415; 80053; 80061; 82306

== ENCOUNTER → 2022-05-17 | Outpatient (CLI) | payer MEDICARE, SELFPAY ==
--- NOTE | 2022-05-17 14:00 | VDLE_ITS ---
Reason For Study: Edema RIGHT GSV is normal. CFV is compressible, spontaneous, phasic, competent and demonstrates normal augmentation. FV is compressible, spontaneous, phasic, competent and demonstrates normal augmentation. POP V is compressible, spontaneous, phasic, competent and demonstrates normal augmentation. T/P Trunk is compressible. PTV is compressible. RT PerV is compressible. Nonvascularized structure noted from the popliteal fossa to proximal calf that measures 11.79 cm in length. Procedure This is a venous duplex using B-mode, color flow and spectral Doppler. Exam performed in department. A preliminary report was called and/or faxed to [facility]. VL/Venous Duplex US, Unilateral Interpretation Summary There is no evidence of right lower extremity deep vein thrombosis. Right great saphenous vein appears patent and compressible segmentally. Long 11.79cm non-vascular structur e right popliteal fossa; complex cystic. Clinical correlation would be approrpriate. Ordering Physician: Suzanne Bagley Referring Physician: Anand Can MD Performed By: Tyra Boles RVT
== END | disposition home or self-care (01) ==
LOC: CVS 13:56
PROVIDERS: PCP Family Medicine; Referring Provider Nurse Practitioner Family; Visit Provider Nurse Practitioner Family
DX: R60.0 Localized edema (principal)
CPT/HCPCS: 93971

== ENCOUNTER 2023-01-01 08:30 | Outpatient (RCR) | payer MEDICARE, SELFPAY ==
--- NOTE | 2023-01-01 08:55 | HP.PTDCSUM ---
It has been my pleasure to treat KATLIN OCHOA referred by JOHANNA Pennington, with the diagnosis of R shoulder pain for a total of 4 visit(s). Discharge Date: Please see the following information for a summary of their discharge status. Subjective: R shoulder pain ranges from 3-6/10 R shoulder Pain Intensity (Out of 10): 3 % Improvement: 75 Objective/Function: R shoulder pain ranges from 3-6/10. R shoulder MMT: flex= 0, abd= 6, ER= 13, IR= 15 #F. R shoulder ROM is WNL when compared bilaterally Goal 1:: Decrease R shoulder pain x 50% to aid with sleep Goal Progress: Goal Met Goal 2:: Increase R shoulder strength x 5-10#F to aid with IADL's Goal Progress: Not Progressing Goal 3:: I with HEP after 2 visits Goal Progress: Goal Met Plan: Discontinue, return to doctor If there are questions or concerns regarding this patient's physical therapy, please feel free to call me at [phone]. Thank you for the referral of this patient. Sincerely, Jose L Goins, PT, ATC Balance/Gait/Functional tests - Balance/Special Test Scores Quick DASH Score: 29.5450
== END 2023-01-01 13:45 | disposition home or self-care (01) ==
LOC: PT 08:30
PROVIDERS: PCP Family Medicine; Referring Provider Nurse Practitioner Family; Visit Provider Nurse Practitioner Family
DX: M25.511 Pain in right shoulder (principal)
CPT/HCPCS: 97110; 97161; 97164

== ENCOUNTER → 2023-01-15 | Outpatient (CLI) | payer MEDICARE, SELFPAY ==
--- NOTE | 2023-01-15 17:54 | MRI_ITS ---
STUDY: MRI RIGHT SHOULDER REASON FOR EXAM: Female, 72 years old. Shoulder pain with limited range of motion. TECHNIQUE: Standardized fat and water weighted pulse sequences were obtained in all 3 orthogonal planes. COMPARISON: None. FINDINGS: Marked supraspinatus and infraspinatus tendinosis with thinning and articular and bursal surface fraying. No full-thickness partial width tear of the posterior fibers of the infraspinatus (coronal series 5 image 9, coronal series 6 images 5-14). Subscapularis tendinosis with thinning/attenuation without a full-thickness tear (axial series 3 images 8-14). Normal teres minor tendon. Normal supraspinatus muscle. Normal infraspinatus muscle. Normal subscapularis muscle. Normal teres minor muscle. Moderate arthrosis of the glenohumeral joint with a large glenohumeral joint effusion (axial series 3 images 7-17). Normal humeral head and visualized proximal humerus. Normal biceps labral complex. Torn, retracted long head of the biceps tendon (axial series 3 images 7-16). Tenosynovitis of the long head of the biceps proximally (axial series 3 images 16-19). Normal labrum. Normal capsulo- ligamentous complex. Normal rotator interval. AC joint hypertrophy with narrowing of the subacromial space (coronal series 6 images 8-14). There is a Type II morphology (curved), with a neutral orientation. Fluid in the subacromial-subdeltoid bursa (coronal series 6 image 9). Normal visualized coracohumeral and coracoacromial ligaments. Normal quadrilateral space. Normal axillary space. Normal deltoid muscle. Normal trapezius muscle. MRI/Upper Ext Joint Only(Routine) IMPRESSION: Supraspinatus and infraspinatus tendinosis with a full-thickness partial width tear of the posterior fibers of the infraspinatus. Subscapularis tendinosis without a full-thickness tear. Moderate arthrosis of the glenohumeral joint. Torn, retracted long head of the biceps tendon with proximal tenosynovitis of the retracted tendon within the intertubercular sulcus. AC joint hypertrophy with narrowing of the subacromial space. Large glenohumeral joint effusion with fluid in the subacromial-subdeltoid bursa. Electronically Signed: Devonte Desai, at 14:57 EDT ,
== END | disposition home or self-care (01) ==
LOC: MRI 17:51
PROVIDERS: PCP Family Medicine; Referring Provider Nurse Practitioner Family; Visit Provider Nurse Practitioner Family
DX: M25.551 Pain in right hip (principal)
CPT/HCPCS: 73221

== ENCOUNTER → 2023-06-28 | Outpatient (CLI) | payer MEDICARE, SELFPAY ==
--- NOTE | 2023-06-28 13:54 | BI_ITS ---
MAMMOGRAPHY - BILATERAL SCREENING REASON FOR EXAM: Female, 73 years old. Routine annual screening examination. PERTINENT HISTORY: Non-contributory. TECHNIQUE: Digital bilateral breast ryan (3D mammographic acquisition) in the CC and MLO projections. 2-D mediolateral oblique (MLO) and craniocaudad (CC) views of both breasts were obtained. CAD: Full Field Digital Mammography with Computer Added Detection was performed. COMPARISON: Comparison is made with prior examination April 17, 2021 and April 23, 2019. FINDINGS: Breast Composition: The breasts are almost entirely fatty. There are no dominant masses or suspicious calcifications. No other significant abnormalities are identified. There has been no significant change since the prior study. BI/SCRN MAMM (CAD)W/RYAN BILAT IMPRESSION: Stable bilateral screening mammogram. Yearly follow-up mammogram recommended. (A) ASSESSMENT CATEGORY: BIRADS Category 1: Negative. A letter regarding these results will be sent to the patient by the facility within 30 days. Approximately 10% of breast cancers are not detected by mammography. A normal mammogram should not delay biopsy of a clinically suspicious abnormality. [id number] Electronically Signed: Derian Dias MD at 14:31 EDT ,
== END | disposition home or self-care (01) ==
LOC: OPBI 13:53
PROVIDERS: PCP Family Medicine; Referring Provider Family Medicine; Visit Provider Family Medicine
DX: Z12.31 Encounter for screening mammogram for malignant neoplasm of breast (principal)
CPT/HCPCS: 77063; 77067

== ENCOUNTER → 2023-08-06 | Outpatient (CLI) | payer MEDICARE, SELFPAY ==
--- NOTE | 2023-08-06 14:23 | BD_ITS ---
STUDY: DUAL ENERGY X-RAY ABSORPTIOMETRY / DXA REASON FOR EXAM: Female, 73 years old. 733.90OsteopeniaBONE DENSITY REASON FOR EXAM TECHNIQUE: Bone Mineral Density (BMD) measurements of lumbar spine and bilateral hips were obtained. COMPARISON: Comparison is made with prior study dated February 10, 2020. FINDINGS: Lumbar Spine (L1-L4): g/cm2 (1.003) / T-score (-0.5) / Z-score (1.7) Findings are suggestive of normal bone density with a low fracture risk. Left Femur Total: g/cm2 (0.668) / T-score (-2.2) / Z-score (-0.7) Left Femoral Neck: g/cm2 (0.626) / T-score (-2.0) / Z-score (-0.1) Right Femur Total: g/cm2 (0.747) / T-score (-1.6) / Z-score (0.0) Right Femoral Neck: g/cm2 (0.711) / T-score (-1.2) / Z-score (0.6) The T-Scores on the most recent prior examination were: Lumbar Spine (L1-L4): There has been worsening of bone density since the previous examination. Left Femur Total: which represents a worsening of 10%. Right Femur Total: which represents a worsening of 4.8. BD/Dexa Bone Density Study IMPRESSION: The patient is considered osteopenic as outlined below according to World [employer] Organization (WHO) criteria with a high fracture risk. There has been worsening of bone density since the previous examination. Reference Information: The T-score is the number of standard deviations above or below the standard which is normal for young adults at their peak bone mineral density. The World Health Organization (WHO) interprets the T-scores as follows: Above -1 Normal bone density Between -1 and -2.5 Osteopenia Equal to / or below -2.5 Osteoporosis As a practical clinical guideline, osteopenia may be graded as follows: Mild -1 through -1.5 Moderate -1.6 through -2.0 Severe -2.1 through -2.4 The Z-score is the number of standard deviations above or below age-matched controls. A Z-score of less than -1.5 would be considered abnormal. References: 1. NIH Osteoporosis and Related Bone Diseases www osteo.org 2. International Society for Clinical Densitometry www iscd.org 3. National Osteoporosis Foundation www nof.org Electronically Signed: Derian Dias MD at 14:26 EST ,
== END | disposition home or self-care (01) ==
LOC: OPBD 14:15
PROVIDERS: PCP Family Medicine; Referring Provider Nurse Practitioner Family; Visit Provider Nurse Practitioner Family
DX: M85.89 Other specified disorders of bone density and structure, multiple sites (principal)
CPT/HCPCS: 77080

== ENCOUNTER 2023-09-13 13:30 | Outpatient (RCR) | payer MEDICARE, SELFPAY ==
--- NOTE | 2023-08-16 16:22 | HP.PTEVAL_ITS ---
Patient's Visit Information Visit Information Visit Information: KATLIN OCHOA is a 73 year old F referred to Physical Therapy by Dr. Omar Diop MD with a diagnosis of RIGHT SHOULDER PAIN ,FALL ,WEAK ER. Date of Evaluation: 08/16/23 Physical Therapist: Derrick Langford, PT, Cert MDT, OCS Visit Plan Frequency: 2x /Week Duration: 4 Weeks Plan: PT INTERVTIONS ROM ,GRADED RTC/SCAPULAR STRENGTHNEING ,POSTURAL EX'S ,MODALTIES AND ACTIVITY MODIFICATION Subjective Subjective: This 73 y/o female presents to physical therapy with right shoulder pain. Patient fell at on outstretch arms in Aug 13 . Seen Jadon recommended PT. Patient fell about ~ 1 year ago ,then had MRI showed RTC tear mild posterior and long head bicep tear and had x-rays. Seen Dr Hines did not need surgery. Patient pain located lateral deltoid described as ache. Pain progressively get some better. Patient denies paresthesia/tingling. Aggravating factors lifting OH ,reaching ,affects ADLS's putting on coat and housework tasks. Alleviating factors rest. No medication. Patient pain affects sleeping initially. Patient condition affects QOL and function and ADLS. Patient goals decrease pain and improve function. SOCIAL: VOCATION: retired Pain Right Shoulder: Pain Intensity (Out of 10): 4 Pain Intensity Range: 10 Objective Objective: POSTURE : rounded shoulders ,head forward PALAPTION: tender AC ,long head bicep NEURO: denies paresthesia/tingling AROM: flexion 80 degrees ,abduction 80 degrees with substitution , ER 80 degrees ,IR T10 MMT: ( peak force ) subscapularis 5 #,supraspinatus 3# ,infraspinatus 0# ,deltoid 0# Special Tests R Shoulder External Rotation Lag Test - RC Tear: Positive R Shoulder Supine Impingement Test - RC Tear: Positive R Shoulder Lift Off Test - Subscapular Tear: Negative R Shoulder Drop Sign - IS Test: Negative R Shoulder Empty Can - SS: Positive R Shoulder Belly Press - SupScap: Negative R Shoulder Neer - Impingement: Positive R Shoulder Burkett Horacio - Impingement: Positive R Shoulder Biceps Load Test - Labrum: Positive Balance/Special Test Scores Quick DASH Score: 42.5000 Goals Goal 1:: Patient to be I with HEP shoulder Goal Time Frame: 4-6 Weeks Goal 2:: Patient to demonstrate 50% improvement with less pain and improved function Goal Time Frame: 4-6 Weeks Goal 3:: Patient to improve AROM shoulder flexion/abduction by 20 degrees to reach in cupboard Goal Time Frame: 4-6 Weeks Goal 4:: Patient to improve peak force of RTC and deltoid by 5-10 # strength to improve function with ADLS Goal Time Frame: 4-6 Weeks Goal 5:: Patient to improve quick dash shoulder by 5 points to improve QOL and function Goal Time Frame: 4-6 Weeks Rehabilitation Potential Physical Therapy Diagnosis: This patient appears to have right tear which may have worsen from previous fall had MRI in appear shower frayed infraspinatus adn supraspinatus fibers along with long head with current impairments to pain ,decrease ROM ,weakness impairs ADLS and housework tasks Rehabilitation Potential: Good Anticipated Interventions Patient/Client Instruction: Educate patient on: Condition and Plan of Care For the Purpose of:: To decrease pain, To increase ROM, To improve muscle performance and motor function, To increase tolerance to activity/condition/position, To improve performance and independence with ADL's, To improve ability of physical actions for home/community/work/leisure, To improve health of tissue, To decrease soft tissue restriction, To increase f lexibility/ROM and To prevent re-injury Therapeutic Exercise to Include: Strength training, Postural training, Flexibilty training and Active ROM Comment: RTC For the Purpose of:: To decrease pain, To decrease swelling/inflammation, To improve muscle performance and motor function, To improve ability to perform ADL's, To increase tolerance to activity/condition/position, To improve ability of physical actions for home/community/work/leisure, To improve health of tissue, To decrease soft tissue restriction, To increase flexibility/ROM and To reduce risk of recurrence TENS: Yes IF ES: Yes Cryotherapy (ice pack, ice massage): Yes Thermo therapy (hot pack): Yes Ultrasound (thermal/non thermal): Yes For the Purpose of:: To decrease pain, To increase ROM, To improve nutrient deli very to tissue, To increase oxygenation perfusion, To improve health of tissue and To decrease soft tissue restriction Text: Thank you for the opportunity to evaluate your patient. For Medicare and Medicare HMO plans, please review the plan of care and approve it. It will need to be FAXED BACK to us at [phone] for Medicare purposes. For Medicare only, by signing this I certify the plan of care. Please let me know if there are questions or concerns regarding this plan of care. Physician Signature: Date:
--- NOTE | 2023-09-13 13:53 | HP.PTDCSUM ---
Discharge Summary D/C summary: It has been my pleasure to treat KATLIN OCHOA referred by Dr. Omar Diop MD, with the diagnosis of RIGHT SHOULDER PAIN ,FALL ,WEAK ER for a total of 8 visit(s). Discharge Date: Please see the following information for a summary of their discharge status. Subjective Subjective: Pain was better yesterday Pain Right Shoulder: Pain Intensity (Out of 10): 3 Overall Improvement % Improvement: 0 Objective Objective/Function: POSTURE : rounded shoulders ,head forward PALAPTION: tender AC ,long head bicep NEURO: denies paresthesia/tingling AROM: flexion 80 degrees ,abduction 80 degrees with substitution , ER 80 degrees ,IR T10 MMT: ( peak force ) subscapularis 5.9 #,supraspinatus 4.2# ,infraspinatus 9.1# ,deltoid 0# Goals Goal 1:: Patient to be I with HEP shoulder Goal Progress: Goal Met Goal 2:: Patient to demonstrate 50% improvement with less pain and improved function Goal Progress: Progressing Goal 3:: Patient to improve AROM shoulder flexion/abduction by 20 degrees to reach in cupboard Goal Progress: Progressing Goal 4:: Patient to improve peak force of RTC and deltoid by 5-10 # strength to improve function with ADLS Goal Progress: Progressing Goal 5:: Patient to improve quick dash shoulder by 5 points to improve QOL and function Goal Progress: Progressing Plan Plan: RTD POSSIBLE D/C Information d/c sentence: If there are questions or concerns regarding this patient's physical therapy, please feel free to call me at [phone]. Thank you for the referral of this patient. Sincerely, Derrick Langford, PT, Cert MDT, OCS Balance/Gait/Functional tests Balance/Special Test Scores Quick DASH Score: 42.5000 Improvement % Improvement: 0
== END 2023-09-13 19:00 | disposition home or self-care (01) ==
LOC: PT 13:30
PROVIDERS: PCP Family Medicine; Referring Provider Family Medicine; Visit Provider Family Medicine
DX: M25.511 Pain in right shoulder (principal); R29.6 Repeated falls
CPT/HCPCS: 97110; 97162

== ENCOUNTER → 2023-10-14 | Outpatient (CLI) | payer MEDICARE, SELFPAY ==
--- NOTE | 2023-10-14 07:01 | MRI_ITS ---
STUDY: MRI RIGHT SHOULDER REASON FOR EXAM: Female, 73 years old. Right shoulder pain, known tears, new trauma. TECHNIQUE: Standardized fat and water weighted pulse sequences were obtained in all 3 orthogonal planes. COMPARISON: Right shoulder MRI dated 01/15/2023. FINDINGS: There are new complete full-thickness tears of the distal supraspinatus and infraspinatus tendons, with 2.9 cm medial tendon retraction. There is a high-grade partial split tear of the distal subscapularis tendon. Normal teres minor tendon. There is mild atrophy and fatty infiltration of the supraspinatus, infraspinatus, and subscapularis muscles. Normal teres minor muscle. There is superior migration of the humeral head with respect to the glenoid with complete loss of the acromiohumeral space. There is a small glenohumeral joint effusion with fluid communicating into the subacromial-subdeltoid bursa. There is medial dislocation of the long biceps tendon. Normal labrum. There is hypertrophic acromioclavicular arthrosis with inferior osteophyte formation, with effacement of the torn end of the supraspinatus tendon. There is a Type II morphology (curved), with a neutral orientation. Normal visualized coracohumeral and coracoacromial ligaments. Normal quadrilateral space. Normal axillary space. Normal deltoid muscle. Normal trapezius muscle. MRI/Upper Ext Joint Only(Routine) IMPRESSION: New complete full-thickness tears of the distal supraspinatus and infraspinatus tendons, with 2.9 cm medial tendon retraction. High-grade partial split tear of the distal subscapularis tendon. Mild atrophy and fatty infiltration of the supraspinatus, infraspinatus, and subscapularis muscles. Superior migration of the humeral head with complete loss of the acromiohumeral space. Small glenohumeral joint effusion with fluid communicating into the subacromial-subdeltoid bursa. Medial dislocation of the long biceps tendon. Hypertrophic acromioclavicular arthrosis with inferior osteophyte formation, with effacement of the torn end of the supraspinatus tendon. Electronically Signed: Bharat Borrego MD at 12:33 EST ,
--- OUTSIDE RECORDS SUMMARY | 2023-10-14 07:42 | XMS RPT_ITS | CCD ---
Author Name Unknown Address [address] [place] [address] Organization [facility] Care Team Providers Care Police Chief Name Role Phone JAYANT DALAL BENNY Unavailable Unavailable Problems Problem Classification Problem Date Documented Da te Episodic/Chronic Unclassified (1 source) Encounter for screening mammogram for malignant neoplasm of breast; Translations: [Encounter for screening mammogram for malignant neoplasm of breast] Onset: 02-27-2018 Episodic Results Test Name Value Interpretation Reference Range Facil ity Encounters Encounter Date Encounter Type Care Provider Facility Start: 02-27-2018 End: 02-27-2018 Ambulatory JAYANT BROWNUR DALAL [facility] Summary Purpose Family History No Family History Records Found Advance Directives No Advanced Directives Records Found Additional Source Comments INFORMATION SOURCE (unrecogn ized section and content) FOR RECORDS PERTAINING TO PATIENTS WHO ARE OR HAVE BEEN ENROLLED IN A CHEMICAL DEPENDENCY/SUBSTANCEABUSE PROGRAM, SOME INFORMATION MAY BE OMITTED. This clinical summary was aggregated from multiple sources. Caution should be exercised in using it in the provision of clinical care. This summary normalizes information from multiple sources, and as a consequence, information in this document may materially change the coding, format and clinical context of patient data. In addition, data may be omitted in some cases. CLINICAL DECISIONS SHOULD BE BASED ON THE PRIMARY CLINICAL RECORDS. [employer] [facility]. provides no warranty or guarantee of the accuracy or completeness of information in this document.
== END | disposition home or self-care (01) ==
PROVIDERS: PCP Family Medicine; Referring Provider Family Medicine; Visit Provider Family Medicine
DX: M75.101 Unspecified rotator cuff tear or rupture of right shoulder, not specified as traumatic (principal)
CPT/HCPCS: 73221

== ENCOUNTER → 2023-10-25 | Outpatient (CLI) | payer MEDICARE, SELFPAY ==
--- OUTSIDE RECORDS SUMMARY | 2023-10-25 11:34 | XMS RPT_ITS | CCD ---
Author Name Unknown Address [address] [place] [address] Organization [facility] Care Team Providers Care Packaging Specialist Name Role Phone JAYANT DALAL BENNY Unavailable [...] 02-27-2018 End: 02-27-2018 Ambulatory JAYANT BROWNUR DALAL [facility] Summary Purpose Family History No Family [...] BE BASED ON THE PRIMARY CLINICAL RECORDS. [employer] [facility]. provides no warranty or guarantee of the accuracy or completeness of information in this document.
[2023-10-25 15:51] LABS: Absolute Lymphocyte Count 0.64 X10^3/uL (0.83-4.51); Absolute Neutrophil Count 6.8 X10^3/uL (2.0-7.7); Basophil# 0.05 X10^3/uL; Basophil% 0.6 % (0-1); Eosinophil# 0.08 X10^3/uL; Hemoglobin 14.6 g/dL (12.0-15.0); Lymphocyte # 0.64 X10^3/ul (0.83-4.51); Lymphocyte % 8.1 % (19-41); Mean Corp Hgb Conc 32.4 g/dL (32-36); Mean Corpuscular Volume 89.3 fL (81-99); Mean Platelet Vol. 11.4 fl (6.2-12.0); Monocyte# 0.36 X10^3/uL; Monocyte% 4.5 % (0-10); NRBC Flagged by Analyzer 0 % (0-5); Neutrophil # 6.77 X10^3/uL (2.7-7.7); Neutrophil % 85.4 % (47-70); Platelet Count 231 K/mm3 (150-450); RBC Distribution Width CV 13.2 % (11.6-14.6); RBC Distribution Width SD 43.2 fl (35.1-43.9); Red Blood Count 5.04 M/mm3 (4.2-5.4); White Blood Count 7.9 K/mm3 (4.4-11.0)
[2023-10-25 16:32] LABS: ALB/GLOB Ratio 1.3 RATIO (0.9-2.4); AST(SGOT) 22 U/L (15-37); Alanine Aminotransfer ALT/SGPT 28 U/L (13-56); Albumin, Serum 3.9 g/dL (3.2-5.0); Alkaline Phosphatase 61 U/L (45-117); Anion Gap 5 (5-15); BUN 21 mg/dL (7-18); BUN/Creat Ratio 22.6 RATIO (10-20); Calcium,Total 9.3 mg/dL (8.5-10.1); Chloride 113 mmol/L (98-107); Creatinine, Serum 0.93 mg/dL (0.55-1.02); EST Glomerular Filtration Rate 63 mL/min (>60); Est Glom Filt Rate - Afr Amer 76 mL/min (>60); Globulin 3.1 g/dL (2.2-4.2); Glucose 94 mg/dL (74-106); Potassium 4.1 mmol/L (3.5-5.1); Sodium Level 142 mmol/L (136-145); Thyroid Stim Hormone (TSH) 1.15 uIU/mL (0.358-3.74)
== END | disposition home or self-care (01) ==
LOC: MFPLAB 11:19
PROVIDERS: PCP Family Medicine; Visit Provider Family Medicine
DX: I10 Essential (primary) hypertension (principal)
CPT/HCPCS: 36415; 80053; 84443; 85025

== ENCOUNTER → 2023-12-06 | Outpatient (CLI) | payer MEDICARE, SELFPAY ==
--- NOTE | 2023-12-06 08:45 | EKG12_ITS ---
Test Reason : PREOP Blood Pressure : / mmHG Vent. Rate : 074 BPM Atrial Rate : 074 BPM P-R Int : 146 ms QRS Dur : 074 ms QT Int : 374 ms P-R-T Axes : 064 020 052 degrees QTc Int : 415 ms Normal sinus rhythm Normal ECG Confirmed by BHASKAR DUARTE, RUIZ ([id number]), editorial specialist ANDREW VALERIO ([id number]) on 12/06/2023 1:00:39 PM Referred By: Isaac Bai Confirmed By:RUIZ MURO MD
[2023-12-06 09:38] LABS: Absolute Lymphocyte Count 0.71 X10^3/uL (0.83-4.51); Absolute Neutrophil Count 10.1 X10^3/uL (2.0-7.7); Basophil# 0.04 X10^3/uL; Basophil% 0.3 % (0-1); Eosinophil# 0.14 X10^3/uL; Eosinophils% 1.2 % (0-5); Hematocrit 46.6 % (37-47); Hemoglobin 15.1 g/dL (12.0-15.0); Lymphocyte # 0.71 X10^3/ul (0.83-4.51); Lymphocyte % 6.2 % (19-41); Mean Corp Hgb Conc 32.4 g/dL (32-36); Mean Corpuscular Hgb 29.1 pg (27.0-32.0); Mean Corpuscular Volume 89.8 fL (81-99); Mean Platelet Vol. 10.7 fl (6.2-12.0); Monocyte# 0.49 X10^3/uL; Monocyte% 4.3 % (0-10); NRBC Flagged by Analyzer 0 % (0-5); Neutrophil # 10.06 X10^3/uL (2.7-7.7); Neutrophil % 87.7 % (47-70); Platelet Count 232 K/mm3 (150-450); RBC Distribution Width CV 13.5 % (11.6-14.6); RBC Distribution Width SD 44.8 fl (35.1-43.9); Red Blood Count 5.19 M/mm3 (4.2-5.4); White Blood Count 11.5 K/mm3 (4.4-11.0)
[2023-12-06 09:55] LABS: Anion Gap 4 (5-15); BUN 25 mg/dL (7-18); BUN/Creat Ratio 22.7 RATIO (10-20); Calcium,Total 9.8 mg/dL (8.5-10.1); Chloride 108 mmol/L (98-107); EST Glomerular Filtration Rate 52 mL/min (>60); Est Glom Filt Rate - Afr Amer 63 mL/min (>60); Glucose 113 mg/dL (74-106); Potassium 4.3 mmol/L (3.5-5.1); Sodium Level 139 mmol/L (136-145)
== END | disposition home or self-care (01) ==
LOC: PSN 08:44
PROVIDERS: Physician Assistant Surgical; PCP Family Medicine; Referring Provider Student in an Organized Health Care Education/Training Program; Visit Provider Student in an Organized Health Care Education/Training Program
DX: Z01.818 Encounter for other preprocedural examination (principal); Z01.810 Encounter for preprocedural cardiovascular examination
CPT/HCPCS: 36415; 80048; 85025; 93005

== ENCOUNTER → 2023-12-12 | Outpatient (CLI) | payer MEDICARE, SELFPAY ==
[2023-12-12 12:11] LABS: Bacteria 0 SEEN /hpf (None Seen); Mucous, Urine 0 SEEN /hpf (<or=2+); Red Blood Cells-Urine 0 SEEN /hpf (0-5)
[2023-12-12 12:21] LABS: Color, Urine Yellow (Yellow); Glucose, Dipstick Normal (Normal); Ketone-Dipstick Negative (Negative); Leukocyte Esterase-Dipstick Negative /ul (Negative); Nitrite-Dipstick Negative (Negative); Occult Blood-Urine Negative /ul (Negative); Protein-Dipstick Negative (Negative); Specific Gravity, Urine 1.005 (1.002-1.030); Urine Bilirubin Dipstick Negative (Negative); Urine Clarity Clear (Clear); Urine Urobilinogen Normal (Normal); Urine pH 6.5 (5.0 - 8.0)
[2023-12-12 12:38] LABS: Squamous Epithelial Cells - UA 0-5 SEEN /hpf (5-10); White Blood Cells 0-5 SEEN /hpf (0-5)
== END | disposition home or self-care (01) ==
LOC: LABSPEC 11:58
PROVIDERS: PCP Family Medicine; Referring Provider Physician Assistant Surgical; Visit Provider Physician Assistant Surgical
DX: N39.0 Urinary tract infection, site not specified (principal); R10.31 Right lower quadrant pain; R10.32 Left lower quadrant pain
CPT/HCPCS: 81001; 87086

== ENCOUNTER → 2024-01-14 | Outpatient (CLI) | payer MEDICARE, SELFPAY ==
[2024-01-14 12:54] LABS: ALB/GLOB Ratio 1.1 RATIO (0.9-2.4); AST(SGOT) 19 U/L (15-37); Alanine Aminotransfer ALT/SGPT 27 U/L (13-56); Albumin, Serum 3.6 g/dL (3.2-5.0); Alkaline Phosphatase 86 U/L (45-117); Anion Gap 6 (5-15); BUN 15 mg/dL (7-18); BUN/Creat Ratio 14.6 RATIO (10-20); Calcium,Total 9.2 mg/dL (8.5-10.1); Chloride 107 mmol/L (98-107); Creatinine, Serum 1.03 mg/dL (0.55-1.02); EST Glomerular Filtration Rate 56 mL/min (>60); Est Glom Filt Rate - Afr Amer 68 mL/min (>60); Globulin 3.4 g/dL (2.2-4.2); Glucose 103 mg/dL (74-106); Potassium 3.8 mmol/L (3.5-5.1); Sodium Level 139 mmol/L (136-145)
== END | disposition home or self-care (01) ==
LOC: MTLAB 09:32
PROVIDERS: PCP Family Medicine; Referring Provider Family Medicine; Visit Provider Family Medicine
DX: I10 Essential (primary) hypertension (principal)
CPT/HCPCS: 36415; 80053

== ENCOUNTER 2024-06-02 09:30 | Outpatient (RCR) | payer MEDICARE, SELFPAY ==
--- NOTE | 2024-01-30 10:30 | HP.PTREVAL_ITS ---
Re-Evaluation Intro: Dr. Isaac Bai, DO, It has been my pleasure to treat KATLIN OCHOA over the last 10 visits for R rot cuff repair 12/16/22. Please see the progress note below for an update on the physical therapy plan of care! Subjective Subjective: Patient reports that she saw MD yesterday- he told her that he was happy with her progress he looked at her ROM. He gave her the protocol and told her that she could lose the sling and not lift anything over 1-2 lbs. He gave her the JEFF shoulder protocol. She is having an issue doing her hair- she is bringing her head down to her hair. Pain at its worst in the last week is a 2/10. She is able to do all of her ADL's independently. Objective Objective/Function: Posture: good throughout Supine AROM: Flexion: 160 degrees PROM: WFL in all ranges with discomfort at end ranges Plan Plan Plan: R shoulder PROM x 6 weeks, AAROM then AROM x 8weeks until progressing to strengthening at 12 weeks consisting or R shoulder rot cuff strengthening, scap stab ex's, UBE, and HEP Balance/Gait/Functional tests Balance/Special Test Scores Quick DASH Score: 47.7250 Goals Goals Goal 1:: Decrease R shoulder pain x 50% to aid with IADLs Goal Time Frame: 4-6 Weeks Goal Progress: Goal Met Goal 2:: Increase R shoulder ROM flex and abd x 40 degrees to aid with overhead activity Goal Time Frame: 4-6 Weeks Goal Progress: Progressing Goal 3:: Increase R shoulder strength x 10 #F to aid with RTW Goal Time Frame: 4-6 Weeks Goal Progress: Progressing Goal 4:: I with HEP Goal Time Frame: 4-6 Weeks Goal Progress: Progressing Anticipated Interventions Anticipated Interventions Patient/Client Instruction: Educate patient on: Condition and Plan of Care For the Purpose of:: To improve self management Therapeutic Exercise to Include: Strength training, Endurance training, Flexibilty training, Passive ROM, Active ROM and Scapular Strength/Stabilization For the Purpose of:: To decrease pain, To increase ROM and To improve muscle per formance and motor function Cryotherapy (ice pack, ice massage): Yes For the Purpose of:: To decrease pain Re-Evaluation Ending Re-evaluation ending: Please do not hesitate to contact me at [phone] by phone or if you have questions or concerns regarding this new plan of care! Sincerely, GREG FranciscoT
--- NOTE | 2024-02-27 10:29 | HP.PTREVAL ---
Re-Evaluation Intro: Dr. Isaac Bai, DO, It has been my pleasure to treat KATLIN OCHOA over the last 18 visits for R rot cuff repair 12/16/22. Please see the progress note below for an update on the physical therapy plan of care! Subjective Subjective: Sees March 10 Doing well Objective Objective/Function: Posture: WFL Supine PROM: Flexion: 160 degrees ,Abduction 160 degrees ,ER 90 ,IR 40 DEGREES AROM: substitution , supraspinatus poor Plan Plan Plan: R shoulder PROM x 6 weeks, AAROM then AROM x 8 weeks until progressing to strengthening at 12 weeks consisting or R shoulder rot cuff strengthening, scap stab ex's, UBE, and HEP Balance/Gait/Functional tests Balance/Special Test Scores Quick DASH Score: 47.7250 Goals Goals Goal 1:: Decrease R shoulder pain x 50% to aid with IADLs Goal Time Frame: 4-6 Weeks Goal Progress: Goal Met Goal 2:: Increase R shoulder ROM flex and abd x 40 degrees to aid with overhead activity Goal Time Frame: 4-6 Weeks Goal Progress: Progressing Goal 3:: Increase R shoulder strength x 10 #F to aid with RTW Goal Time Frame: 4-6 Weeks Goal Progress: Progressing Goal 4:: I with HEP Goal Time Frame: 4-6 Weeks Goal Progress: Progressing Anticipated Interventions Anticipated Interventions Patient/Client Instruction: Educate patient on: Condition and Plan of Care For the Purpose of:: To improve self management Therapeutic Exercise to Include: Strength training, Endurance training, Flexibilty training, Passive ROM, Active ROM and Scapular Strength/Stabilization For the Purpose of:: To decrease pain, To increase ROM and To improve muscle performance and motor function Cryotherapy (ice pack, ice massage): Yes For the Purpose of:: To decrease pain Re-Evaluation Ending Re-evaluation ending: Please do not hesitate to contact me at [phone] by phone or if you have questions or concerns regarding this new plan of care! Sincerely, Derrick Langford, PT, Cert MDT, OCS
--- NOTE | 2024-04-02 10:27 | HP.PTREVAL ---
Re-Evaluation Intro: Dr. Isaac Bai, DO, It has been my pleasure to treat KATLIN OCHOA over the last 27 visits for R rot cuff repair 12/16/22. Please see the progress note below for an update on the physical therapy plan of care! Subjective Subjective: Patient doing much better but still weak Patient see 3 weeks ago Objective Objective/Function: Cont to benefit from skilled PT due to weakness shoulder and RTC with goals appropriate Posture: WFL PALAPTION; tender inferior Subacromial EDEMA: mild effusion Supine PROM: Flexion: 160 degrees ,Abduction 160 degrees ,ER 90 , AROM: substitution pattern , supraspinatus poor PEAK FORCE: infraspinatus 3.4 - drop arm Plan Plan Plan: R shoulder rot cuff strengthening, scap stab ex's, ( avoid substitution)UBE, and HEP. Cont to stretch end-ranges, sergio IR. Balance/Gait/Functional tests Balance/Special Test Scores Quick DASH Score: 43.1800 Goals Goals Goal 1:: Decrease R shoulder pain x 50% to aid with IADLs Goal Time Frame: 4-6 Weeks Goal Progress: Goal Met Goal 2:: Increase R shoulder ROM flex and abd x 40 degrees to aid with overhead activity Goal Time Frame: 4-6 Weeks Goal Progress: Progressing Goal 3:: Increase R shoulder strength x 10 #F to aid with RTW Goal Time Frame: 4-6 Weeks Goal Progress: Progressing Goal 4:: I with HEP Goal Time Frame: 4-6 Weeks Goal Progress: Progressing Anticipated Interventions Anticipated Interventions Patient/Client Instruction: Educate patient on: Condition and Plan of Care For the Purpose of:: To improve self management Therapeutic Exercise to Include: Strength training, Endurance training, Flexibilty training, Passive ROM, Active ROM and Scapular Strength/Stabilization For the Purpose of:: To decrease pain, To increase ROM and To improve muscle performance and motor function Cryotherapy (ice pack, ice massage): Yes For the Purpose of:: To decrease pain Re-Evaluation Ending Re-evaluation ending: Please do not hesitate to contact me at [phone] by phone or if you have questions or concerns regarding this new plan of care! Sincerely, Derrick Langford, PT, Cert MDT, OCS
--- NOTE | 2024-05-07 10:31 | HP.PTREVAL ---
Re-Evaluation Intro: Dr. Iasac Bai, DO, It has been my pleasure to treat KATLIN OCHOA over the last 37 visits for R rot cuff repair 12/16/22. Please see the progress note below for an update on the physical therapy plan of care! Subjective Subjective: 5 months out. Pt says she is doing lots better. 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 Can take sheets off bed now and does well. Can do hair and put arm up now. Sleep is good. Mild pain achy at end of day and uses ice. HEP: band pulls, wall ROM. pendulum. pulleys. Hobbies: gardening and sewing without much problem. reaching out for sewing is abkle but can make her sore. Going to pool and swimming breaststroke. 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 Objective Objective/Function: 7# er, 11# flexion at 40 flexion on Right side. improving but still weak. AROM with momentum to 160 flexion but 60 without momentum, hard to slowly lower R arm in flexion, can do abduction. Still elevates R scap in shoulder g-h elevation as compensatory strategy. new goals and POC Fair prognosis Plan Plan Plan: 2x/week for 4 week POC to ensure progression of scap and er strength and progression to gym program with UE I. Ensure progression of er home strength. Balance/Gait/Functional tests Balance/Special Test Scores Quick DASH Score: 43.1800 Goals Goals Goal 1:: Decrease R shoulder pain x 50% to aid with IADLs Goal Time Frame: 4-6 Weeks Goal Progress: Goal Met Goal 2:: Increase R shoulder ROM flex and abd x 40 degrees to aid with overhead activity Goal Time Frame: 4-6 Weeks Goal Progress: Goal Met Goal 3:: Increase R shoulder strength x 10 #F to aid with RTW Goal Time Frame: 4-6 Weeks Goal Progress: Progressing Goal 4:: I with HEP Goal Time Frame: 4-6 Weeks Goal Progress: Goal Met Goal 5:: i appropriate gym based routine to continue strength as member. Goal Time Frame: 2-4 Weeks Goal Progress: NEW GOAL Goal 6:: 10# R er to show improved stability. Anticipated Interventions Anticipated Interventions Patient/Client Instruction: Educate patient on: Condition and Plan of Care For the Purpose of:: To improve self management Therapeutic Exercise to Include: Strength training, Endurance training, Flexibilty training, Passive ROM, Active ROM and Scapular Strength/Stabilization For the Purpose of:: To decrease pain, To increase ROM and To improve muscle performance and motor function Cryotherapy (ice pack, ice massage): Yes For the Purpose of:: To decrease pain Re-Evaluation Ending Re-evaluation ending: Please do not hesitate to contact me at [phone] by phone or if you have questions or concerns regarding this new plan of care! Sincerely, Anand Bowling, DPT, OCS, CSCS
--- NOTE | 2024-06-02 10:25 | HP.PTDCSUM_ITS ---
Discharge Summary D/C summary: It has been my pleasure to treat KATLIN OCHOA referred by Dr. Isaac Bai DO, with the diagnosis of R rot cuff repair 12/16/22 for a total of 43 visit(s). Discharge Date: 06/02/24 Please see the following information for a summary of their discharge status. Subjective Subjective: Getting better. Surgeon wants MRI doesn't think surgery took. Pain anterior shoulder 0-/10 only. Can do hair. Hard to put heavier objects on closet top. basic ADLs are I. 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 Pt contemplating MRI but does not want another surgery adn is admittedly very funcitonal. Pain R shoulder: Pain Intensity (Out of 10): 0 Overall Improvement % Improvement: 85 Objective Objective/Function: R scapular compensation with elevation as the scapula elevates. AROM LLA is 100 and SLA is 110 but PROm to 150. Er and IR are full adn painfree on r side. Obvious weakness in ext rotation R at 3 vs 4+ on L, IR is 4+ B. elevation is 3- R and 4+ L. overall obvious er defictis and stabilization with elevation deficits but has become very funcitonal and not sure she wants another surgery due to her good funcitonal status. Plans on continuing strength for a month to doctor visit and then discussing with doctor. R er strength 7# and elevation is 10# Goals Goal 1:: Decrease R shoulder pain x 50% to aid with IADLs Goal Progress: Goal Met Goal 2:: Increase R shoulder ROM flex and abd x 40 degrees to aid with overhead activity Goal Progress: Goal Met Goal 3:: Increase R shoulder strength x 10 #F to aid with RTW Goal Progress: Progressing Goal 4:: I with HEP Goal Progress: Goal Met Goal 5:: i appropriate gym based routine to continue strength as member. Goal Progress: Goal Met Goal 6:: 10# R er to show improved stability. Goal Progress: Not Progressing Plan Plan: d/c to gym adn HEP D/C Information Discharge Comments: Pt to doctor in July. d/c sentence: If there are questions or concerns regarding this patient's physical therapy, please feel free to call me at [phone]. Thank you for the referral of this patient. Sincerely, Anand Dash, DPT, OCS, CSCS Balance/Gait/Functional tests Balance/Special Test Scores Quick DASH Score: 5.0000 Improvement % Improvement: 85
== END 2024-06-02 19:00 | disposition home or self-care (01) ==
LOC: PT 09:30
PROVIDERS: PCP Family Medicine; Referring Provider Student in an Organized Health Care Education/Training Program; Visit Provider Student in an Organized Health Care Education/Training Program
DX: S46.011D Strain of muscle(s) and tendon(s) of the rotator cuff of right shoulder, subsequent encounter (principal); M75.41 Impingement syndrome of right shoulder; M25.411 Effusion, right shoulder
CPT/HCPCS: 97110; 97140; 97161; 97530

== ENCOUNTER → 2024-07-29 | Outpatient (CLI) | payer MEDICARE, SELFPAY ==
[2024-07-29 15:07] LABS: ALB/GLOB Ratio 1.3 RATIO (0.9-2.4); AST(SGOT) 24 U/L (15-37); Alanine Aminotransfer ALT/SGPT 29 U/L (13-56); Albumin, Serum 3.9 g/dL (3.2-5.0); Alkaline Phosphatase 76 U/L (45-117); Anion Gap 6 (5-15); BUN 21 mg/dL (7-18); BUN/Creat Ratio 19.3 RATIO (10-20); Calcium,Total 9.2 mg/dL (8.5-10.1); Chloride 108 mmol/L (98-107); Creatinine, Serum 1.09 mg/dL (0.55-1.02); EST Glomerular Filtration Rate 52 mL/min (>60); Est Glom Filt Rate - Afr Amer 63 mL/min (>60); Globulin 3.1 g/dL (2.2-4.2); Glucose 91 mg/dL (74-106); Potassium 4.1 mmol/L (3.5-5.1); Sodium Level 138 mmol/L (136-145)
[2024-07-29 15:18] LABS: Microalbumin,Random Urine < 5.0 mg/L (NO RANGE EST.)
== END | disposition home or self-care (01) ==
LOC: MTLAB 11:30
PROVIDERS: PCP Family Medicine; Referring Provider Family Medicine; Visit Provider Family Medicine
DX: I10 Essential (primary) hypertension (principal)
CPT/HCPCS: 36415; 80053; 82043; 82570

== ENCOUNTER → 2025-01-29 | Outpatient (CLI) | payer MEDICARE, SELFPAY ==
[2025-01-29 12:36] LABS: ALB/GLOB Ratio 1.5 RATIO (0.9-2.4); AST(SGOT) 23 U/L (<=31); Alanine Aminotransfer ALT/SGPT 20 U/L (<=34); Albumin, Serum 4.2 g/dL (3.4-4.8); Alkaline Phosphatase 82 U/L (35-104); Anion Gap 13 (5-15); BUN 16 mg/dL (4-19); BUN/Creat Ratio 17.4 RATIO (10-20); Calcium,Total 9.6 mg/dL (7.6-11.0); Carbon Dioxide 20.4 mmol/L (21.0-32.0); Chloride 105 mmol/L (98-108); Creatinine, Serum 0.93 mg/dL (0.70-1.20); EST Glomerular Filtration Rate 65 (>60); Globulin 2.8 g/dL (2.2-4.2); Glucose 95 mg/dL (70-99); Potassium 4.1 mmol/L (3.3-5.1); Sodium Level 139 mmol/L (133-145)
[2025-01-29 13:39] LABS: Microalbumin,Random Urine < 12.0 mg/L (NO RANGE EST.); Microalbumin:Creatinine Ratio UNABLE TO CALCULATE mg/g CRE
== END | disposition home or self-care (01) ==
LOC: MFPLAB 10:48
PROVIDERS: PCP Family Medicine; Referring Provider Family Medicine; Visit Provider Family Medicine
DX: I10 Essential (primary) hypertension (principal)
CPT/HCPCS: 36415; 80053; 82043; 82570

== ENCOUNTER → 2025-08-26 | Outpatient (CLI) | payer MEDICARE, SELFPAY ==
--- NOTE | 2025-08-26 15:57 | BD_ITS ---
PROCEDURE: DEXA BONE DENSITY STUDY 08/26/2025 REASON FOR EXAM: F, age 75 y/o . Postmenopausal. TECHNIQUE: Procedure Code: BDDBD Modality: DX Procedure: DEXA BONE DENSITY STUDY COMPARISON: Prior exams were compared FINDINGS: BMD and T-SCORES Lumbar spine: 0.987 g/cm2, T-score -1.0 Levels: L3 and L4 Left femoral neck: 0.609 g/cm2, T-score -2.2 Femoral neck comparison data not recommended for monitoring change. Prior T-score Left total hip: g/cm2, T-score Change from prior: . Right femoral neck: 0.628 g/cm2, T-score -2.0 The World Health Organization has defined the following categories based on bone density: Normal bone density: T-score equal to or greater than -1.0 Osteopenia: T-score between -1.0 and -2.5 Osteoporosis: T-score equal to or less than -2.5 FRAX (or Comparable) Fracture Risk Assessment: 10 Year Probability of Fracture: Major Osteoporotic Fracture: 12% Hip Fracture: 2.8% (Note: FRAX is not to be reported in setting of normal range bone density, osteoporosis on DEXA, known history of osteoporosis, prior osteoporotic hip or vertebral fracture, or for any patient undergoing pharmacological treatment for bone loss.) The National Osteoporosis Foundation (NOF) recommends pharmacological treatment for patients with a FRAX 10-year risk of 3% or higher for a hip fracture, or 20% or higher for a major osteoporotic fracture, to prevent osteoporosis and reduce fracture risk. BD/Dexa Bone Density Study IMPRESSION: OSTEOPENIA. Recommend follow-up as clinically warranted. Reading Location: [id number]
--- NOTE | 2025-08-26 15:57 | BI_ITS ---
EXAM: SCRN MAMM (CAD)W/RYAN BILAT DATE: 08/26/2025 CLINICAL HISTORY: F, Age 75 y/o , SCREENING No family history. TECHNIQUE: Procedure Code: [id number] Modality: MG Procedure: SCRN MAMM (CAD)W/RYAN BILAT COMPARISON: Prior exam(s) dated June 28, 2023.. FINDINGS: TISSUE DENSITY: The breasts are almost entirely fatty. Bilateral Breast Mammographic Findings: No significant masses, calcifications or other abnormalities are identified. Stable small benign-appearing bilateral axillary lymph nodes. No suspicious masses, areas of developing architectural distortion, or suspicious calcifications. There has been no significant interval change. BI/SCRN MAMM (CAD)W/RYAN BILAT IMPRESSION: Stable bilateral screening mammogram. OVERALL FINAL ASSESSMENT BI-RADS 2: BENIGN RECOMMENDATION: Routine annual follow-up in 1 Year Additional Recommendation none A letter with findings and recommendations will be mailed to the patient. Reading Location: [facility]
== END | disposition home or self-care (01) ==
LOC: OPBD 15:56
PROVIDERS: PCP Family Medicine
DX: Z12.31 Encounter for screening mammogram for malignant neoplasm of breast (principal); Z78.0 Asymptomatic menopausal state; M81.0 Age-related osteoporosis without current pathological fracture
CPT/HCPCS: 77063; 77067; 77080